=== PATIENT | female | born 1960 | race African-American/Black ===

== ENCOUNTER → 2016-04-22 | Outpatient (CLI) | payer OTHER ==
[2015-10-17 01:18] VITALS: BP 185/119
[~2016-04-22] MED LIST: IBUP-1027 PO; IOHEXOL 180 MG/ML 10 ML VIAL. INT ART ONE; LIDOCAINE 1% Multi-Dose 20 ML VIAL. ID ONE; SULF1TAB24 PO
--- NOTE | 2016-04-22 15:06 | KCIC ---
PROCEDURE CT arthrogram of the left shoulder HISTORY Left shoulder pain, history of fall. Pain since January. COMPARISON None TECHNIQUE Intraarticular contrast was injected prior to the scan. Standard images are obtained. Exposure: One or more of the following individualized dose reduction techniques were utilized for this exam: 1. Automated exposure control. 2. Adjustment of the mA and/or kV according to patient size. 3. Use of iterative reconstruction technique. FINDINGS Broad deep undersurface tear of the supraspinatus tendon, measures 2 cm AP diameter. There is a tiny linear full-thickness component which extends from this undersurface tear to the bursal surface layer, sagittal series 603, image 8 and coronal series 602, image 10. Mild spill of contrast into the subdeltoid bursa. Note that this bursal surface involvement is nearly pinpoint. No evidence of tear involving the infra spinatus tendon. No gross subscapularis tendon rupture. Irregularity identified at the posterior labrum particularly inferiorly, greatest at 8-9 o'clock, compatible with a degenerative tear. Axial series 2, images 18-20. No acute articular cartilage defect. The biceps tendon appears grossly intact. No evidence of HAGL lesion. No bone lesion. No acute fracture. IMPRESSION 1. Moderate size undersurface tear of the supraspinatus tendon. There is a linear pinpoint defect which extends from this defect through the bursal layer resulting in a small full-thickness tear. 2. Posteroinferior labrum tear. Electronically signed by: Darron Alcantar MD (Apr 22, 2016 15:05:25)
--- NOTE | 2016-04-22 15:08 | KCIC ---
PROCEDURE: Left shoulder injection using fluoroscopic guidance, prior to CT HISTORY: Shoulder pain. TECHNIQUE: The procedure was explained to the patient as were potential risks, including among others infection, bleeding or allergic reaction. All questions were answered. Informed written and verbal consent was obtained. The shoulder was prepped and draped in the usual sterile manner. Following administration of local anesthetic, a 22-gauge needle was advanced into the anterior shoulder. Following negative aspiration, 12 cc of a solution of 15cc Omnipaque-180 contrast and 5 cc lidocaine was injected without difficulty. The needle was removed. There was good hemostasis at the injection site. The patient left in stable condition without immediate complication. The patient was given postprocedural instructions, and instructed to contact us or the ER if there are any complications. A single spot image is obtained. FLUOROSCOPY TIME: 23 seconds Electronically signed by: Darron Alcantar MD (Apr 22, 2016 15:07:57)
== END | disposition home or self-care (01) ==
LOC: KCIC 10:04
PROVIDERS: ATTEND Orthopaedic Surgery Sports Medicine
DX: M75.102 Unspecified rotator cuff tear or rupture of left shoulder, not specified as traumatic (principal); S43.402A Unspecified sprain of left shoulder joint, initial encounter; X58.XXXA Exposure to other specified factors, initial encounter; Y93.89 Activity, other specified; Y92.89 Other specified places as the place of occurrence of the external cause; Y99.8 Other external cause status; Z91.81 History of falling
CPT/HCPCS: 73040; 73201

== ENCOUNTER 2016-06-26 09:03 | Day surgery (SDC) | payer OTHER ==
[~2016-06-26 09:03] MED LIST changes: +AMLO5TAB2 PO; +ASPI-482 PO; +BUPIVACAINE MPF 0.5% 30 ML VIAL. ONE; +CEFAZOLIN 1GM IVPB FOR OMNI 50 ML IV PRN; +CHOL10007 PO; +CYCL10TA2 PO; +DESFLURANE > 120 MINUTES IH ONE; +DEXAMETHASONE SOD PHOS 20 MG/5 ML VIAL. ONE; +FENTANYL PF 100 MCG/2 ML VIAL. IV PRN; +FENTANYL PF 100 MCG/2 ML VIAL. ONE; +FLUT16SP NS; +GLIM4TAB2 PO; +IBUP-1060 PO; -IOHEXOL 180 MG/ML 10 ML VIAL. INT ART ONE; +IV RINGERS,LACTATED 1000ML 1,000 ML IV SCH; +LIDOCAINE 1% 1 ML SYRINGE. ID PRN; -LIDOCAINE 1% Multi-Dose 20 ML VIAL. ID ONE; +LIDOCAINE 1% PF 30 ML VIAL. ONE; +LIDOCAINE 2% 100 MG/5 ML SYRINGE. ONE; +LORA10TA3 PO; +LOSA1TAB17 PO; +MAGN400T22 PO; +METF10002 PO; +METO25TA9 PO; +MIDAZOLAM HCL/PF 2 MG/2 ML VIAL. ONE; +OMEG1CAP38 PO; +OMEP20TA PO; +ONDANSETRON PF 4 MG/2 ML VIAL. IV PRN; +ONDANSETRON PF 4 MG/2 ML VIAL. ONE; +PRAV20TA2 PO; +PROCHLORPERAZINE 10 MG/2 ML VIAL. IV PRN; +PROPOFOL 20 ML IV ONE; +SITA100T PO; +TIOT4MIS3 IH
--- NOTE | 2016-06-26 09:45 | RAD ---
PROCEDURE Two-view chest HISTORY Preop rotator cuff repair today COMPARISON None available FINDINGS Two views of the chest are submitted. There is emphysema. There is no lobar consolidation, pleural fluid, pneumothorax. There is thoracic spinal stimulator lead. IMPRESSION 1. There is emphysema. Electronically signed by: Tj Ross MD (Jun 26, 2016 09:44:15)
[2016-06-26] MEDS ORDERED: ROPIVacaine 0.5% PF 30 ML VIAL. ONE (09:58)
--- NOTE | 2016-06-26 10:08 | DISCH ---
DISCHARGE INSTRUCTIONS Condition on Discharge Condition on Discharge: Stable Activity After Discharge Activity Instructions for Disc: Other, see below Other activity instructions: arm to remain in sling Bathing Instructions: Shower-keep dressing dry Weight Bearing Status after Di: Non weight bearing Diet after Discharge Diet after Discharge: Regular Wound Incision Care Wound/Incision Care: Ice to area for comfort, Keep wound/cast CDI, Change dressing Contacting the DRTeo after DC Call your doctor for: Concerns you may have Follow-Up Follow up with: Rosalio/Farzad in 2 wks LEEROY NOYOLA II, MD Jun 26, 2016 10:07
--- NOTE | 2016-06-26 10:09 | PDOC ---
BRIEF OPERATIVE NOTE Date: Jun 26, 2016 Pre-Op Diagnosis L RTC tear Post-Op Diagnosis same Procedure Performed Mini-open L RTC tear Surgeon Farzad Zeng Anesthesia Type: General, Local, Regional Blood Loss 25mL Complications none LEEROY NOYOLA II, MD Jun 26, 2016 10:09
[2016-06-26] MEDS ORDERED: ROCURONIUM 50 MG/5 ML VIAL. ONE (10:37)
[2016-06-26] MEDS ORDERED: MIDAZOLAM HCL/PF 2 MG/2 ML VIAL. ONE (10:49)
[2016-06-26] MEDS ORDERED: FENTANYL PF 100 MCG/2 ML VIAL. ONE (10:49)
[2016-06-26] MEDS ORDERED: PHENYLEPHRINE 10 MG/ML VIAL. ONE (10:57)
[2016-06-26] MEDS ORDERED: DEXAMETHASONE SOD PHOS 20 MG/5 ML VIAL. ONE (11:10)
[2016-06-26] MEDS ORDERED: ONDANSETRON PF 4 MG/2 ML VIAL. ONE (11:11)
[2016-06-26] MEDS ORDERED: LIDOCAINE 2% 100 MG/5 ML SYRINGE. ONE (12:04)
[2016-06-26] MEDS ORDERED: GLYCOPYRROLATE 1 MG/5 ML VIAL. ONE (12:07)
[2016-06-26] MEDS ORDERED: NEOSTIGMINE METHYLSULFATE 5 MG/5 ML SYRINGE. ONE (12:07)
[2016-06-26] MEDS ORDERED: OXYC-323 PO (12:53)
[2016-06-26] MEDS ORDERED: DOCU-27 PO (12:54)
[2016-06-26] MEDS ORDERED: ONDA4TAB10 PO (12:54)
[2016-06-26 13:20] VITALS: BP 123/73
--- NOTE | 2016-06-26 15:50 | EKG ---
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
--- NOTE | 2016-06-26 16:47 | OP ---
DATE OF SURGERY: 06/26/2016 SURGEON: Ariel Noyola M.D. ROOM CLEANER: Shanelle Zeng. ANESTHESIA: General plus regional. PREOPERATIVE DIAGNOSIS: Near full thickness left shoulder rotator cuff tear. POSTOPERATIVE DIAGNOSIS: Near full thickness left shoulder rotator cuff tear. PROCEDURE PERFORMED: Completion of rotator cuff tear and mini open left rotator cuff repair. ESTIMATED BLOOD LOSS: 25 mL COMPLICATIONS: None. REASON FOR PROCEDURE DONE: The patient is a very pleasant 55-year-old female who failed conservative therapies including injections and physical therapy as well as anti-inflammatories and had persistent shoulder pain and dysfunction. Because of this, we obtained an MRI. Clinical and radiographic evidence were consistent with the above preoperative diagnosis and after discussion of the risks, benefits, alternatives, we elected to proceed with surgery. DESCRIPTION OF PROCEDURE: The patient was greeted in the preoperative area by myself where correct extremity was marked and verified. She then had a regional nerve block placed by the anesthesiology team and then was taken back to the operative suite and had her antibiotics started en route. Once in the OR, she was transferred gently supine to the OR table after successful induction of general anesthesia. We then set her up in a beach chair position and maintained her C-spine in neutral position and secured to the bed with a large pad under hips and legs. We then proceeded to prep and drape left upper extremity and shoulder girdle in our usual sterile fashion including Ioban at the periphery. I then palpated, marked surface anatomy and made about a 6 cm incision of the anterior portion of her lateral acromion. I dissected skin down to the level of fascia and cauterized bleeders with electrocautery. I then identified the deltoid raphe using a scalpel blade to incise this and then scalpel to carry this out distally. I then placed a Gelpi retractor deep to the deltoid after bluntly freeing up some adhesions. I then excised through bursa with Hiren and the heavy pickup. After this, I identified a rotator cuff then used a [place] and digital palpation to identify where the fibers were really thin and incised in the central portion of this at the rotator cuff footprint. I then placed a tag stitch and was able to lift upper rotator cuff and I continued incising a rotator cuff until I visualized that it had a normal attachment. I then used a rongeur to debride the edges of the rotator cuff and the footprint. I then created a small trough in the rotator cuff footprint with the rongeur. I then shuttled a total of 5 sutures through this tear which was approximately 4 cm long. I then passed this through with a single suture for the first one and posterior most one. Otherwise, I passed the bottom of the preceding suture and the top of the suture behind it through the tunnel with the free needle. After this, I then tied the suture limbs down to each other over bone tunnels which gave a good solid repair and no motion on gentle rotation of the arm. We then irrigated out the operative field and I proceeded to close the deltoid fascia with simple interrupted #1 Vicryl. Inverted interrupted 2-0 was used for subcutaneous tissue, running 4-0 Monocryl was used for skin. Prior to wound closure, all counts were reported correct x 2. No complications. It should be noted that tendon was not retracted and had great bounce and I did not need to do any releases. After skin was closed, left upper extremity and shoulder was cleansed and dried and a sterile dressing was applied followed by an abduction pillow sling. She was awaked from anesthesia, tolerated surgery well. No complications. Postop plan is to discharge her home. She will start physical therapy early next week and we will see her back in my clinic in 2 weeks, sooner should problems arise. ARIEL NOYOLA MD DR: ORLANDO/bibi JOB#: [id number] / [id number] CAMILA
== END 2016-06-26 13:40 | disposition home or self-care (01) ==
LOC: SURG 09:03
PROVIDERS: ATTEND Orthopaedic Surgery Sports Medicine
DX: M75.102 Unspecified rotator cuff tear or rupture of left shoulder, not specified as traumatic (principal); E78.00 Pure hypercholesterolemia, unspecified; I10 Essential (primary) hypertension; J44.9 Chronic obstructive pulmonary disease, unspecified; E66.9 Obesity, unspecified; E11.9 Type 2 diabetes mellitus without complications; Z87.39 Personal history of other diseases of the musculoskeletal system and connective tissue; Z90.710 Acquired absence of both cervix and uterus; Z86.73 Personal history of transient ischemic attack (TIA), and cerebral infarction without residual deficits
CPT/HCPCS: 23410; 71020; 82947; 93005; J0690; J1100; J2250; J2405; J2704; J2710; J2795; J3010; J3490

== ENCOUNTER 2016-07-01 11:22 | Emergency (ER) | payer OTHER ==
[~2016-07-01] VITALS: Ht 165.1 cm; Wt 73.9 kg
[~2016-07-01 11:22] MED LIST changes: -BUPIVACAINE MPF 0.5% 30 ML VIAL. ONE; -CEFAZOLIN 1GM IVPB FOR OMNI 50 ML IV PRN; -DESFLURANE > 120 MINUTES IH ONE; -DEXAMETHASONE SOD PHOS 20 MG/5 ML VIAL. ONE; +DOCU-27 PO; -FENTANYL PF 100 MCG/2 ML VIAL. IV PRN; -FENTANYL PF 100 MCG/2 ML VIAL. ONE; -IV RINGERS,LACTATED 1000ML 1,000 ML IV SCH; -LIDOCAINE 1% 1 ML SYRINGE. ID PRN; -LIDOCAINE 1% PF 30 ML VIAL. ONE; -LIDOCAINE 2% 100 MG/5 ML SYRINGE. ONE; -MIDAZOLAM HCL/PF 2 MG/2 ML VIAL. ONE; +ONDA4TAB10 PO; -ONDANSETRON PF 4 MG/2 ML VIAL. IV PRN; -ONDANSETRON PF 4 MG/2 ML VIAL. ONE; +OXYC-323 PO; -PROCHLORPERAZINE 10 MG/2 ML VIAL. IV PRN; -PROPOFOL 20 ML IV ONE
[2016-07-01 11:43] VITALS: BP 132/91
[2016-07-01] MEDS ORDERED: IBUP-1007 PO (13:00)
[2016-07-01] MEDS ORDERED: PENI500T PO (13:00)
--- NOTE | 2016-07-01 13:00 | PHYS DOC ---
Past Medical History Past Medical History: Diabetes-Type II, Diverticulitis, High Cholesterol, Hypertension Additional Past Medical Histor: chronic back pain, sarcoidosis, pilonidal cyst Past Surgical History: Hysterectomy Additional Past Surgical Histo: back surgery- spinal cord stimulator, lumpectomy, cyst Alcohol Use: Occasionally Drug Use: None Adult General Chief Complaint Chief Complaint: DENTAL PROBLEM HPI HPI Patient is a 55 year old female who presents with pain. Patient reports right- sided tooth pain with jaw swelling and difficulty opening her mouth. Denies fevers or chills, vomiting. No drainage. Does not currently have a dentist. She recently had shoulder surgery by Dr. Panda & has been taking percocet at home. Review of Systems Review of Systems Constitutional: Denies fever or chills HENT: Denies nasal congestion or sore throat , reports dental pain and facial swelling Respiratory: Denies cough or shortness of breath Cardiovascular: Denies chest pain GI: Denies abdominal pain, nausea, vomiting Musculoskeletal: Denies back pain or joint pain Integument: Denies rash Neurologic: Denies headache Current Medications Current Medications Current Medications Medications (Trade) Dose Ordered Sig/Misty Start Time Stop Time Status Last Admin Dose Admin Fentanyl Citrate (Fentanyl 2ml Vial) 50 mcg 1X ONCE 07/01/16 13:45 07/01/16 13:45 DC 07/01/16 13:22 50 MCG Allergies Allergies Allergies Coded Allergies Type Severity Reaction Last Updated Verified hydrocodone Adverse Reaction Intermediate headache 07/01/16 Yes morphine Adverse Reaction Intermediate headache 07/01/16 Yes propoxyphene Adverse Reaction Intermediate HEADACHE 07/01/16 Yes Physical Exam Physical Exam Constitutional: Well developed, well nourished, no acute distress, non-toxic appearance. HENT: Normocephalic, atraumatic, bilateral external ears normal, oropharynx moist, nose normal. Right-sided facial swelling with gingival erythema surrounding tooth #6, no abscess, mild trismus, airway is patent. Eyes: conjunctiva normal, no discharge. Cardiovascular: no edema. Lungs & Thorax: no respiratory distress. Abdomen: nondistended. Skin: Warm, dry, Extremities: No deformity. Wearing a sling to left upper extremity Neurologic: Alert and oriented X 3 Current Patient Data Vital Signs Vital Signs Date Time Temp Pulse Resp B/P Pulse Ox O2 Delivery O2 Flow Rate FiO2 07/01/16 11:43 98.8 116 20 97 Room Air 98.8 EKG EKG [] Radiology/Procedures Radiology/Procedures [] Course & Med Decision Making Course & Med Decision Making Pertinent Labs and Imaging studies reviewed. (See chart for details) Patient presents with dental pain and infection. Gave fentanyl injection here as she has arty been taking Percocet at home. Encouraged her to continue Percocet, add ibuprofen. Given prescription for penicillin VK. Recommend follow- up as soon as possible with a dentist for definitive management. Return for difficulty breathing or swallowing. Patient discharged home in stable condition. [] Dragon Disclaimer Dragon Disclaimer This electronic medical record was generated, in whole or in part, using a voice recognition dictation system. Departure Departure Impression: Primary Impression: Dental infection Disposition: HOME, SELF-CARE Condition: STABLE Referrals: LEXI GUY MD (PCP) Patient Instructions: Dental Pain, [id number] Additional Instructions: You were seen in the emergency department today for dental infection. Please take the prescribed antibiotic. Continue taking the medication as prescribed by your orthopedic doctor. If needed you can also take ibuprofen. Also apply ice packs your face. Try to make an appointment as soon as possible to see a dentist as he might need to have her tooth extracted. Come back for difficulty breathing or swallowing, or any otherwise worsening condition. Scripts Ibuprofen 600 Mg [id number] Mg PO PRN Q6HRS PRN INFLAMMATION #15 TAB Prov:LIA DOMINGUEZ MD 07/01/16 Penicillin V Potassium 500 Mg Tablet1 Tab PO QID #40 TAB Prov:LIA DOMINGUEZ MD 07/01/16 LIA DOMINGUEZ MD Jul 01, 2016 13:00
[2016-07-01] MEDS ORDERED: FENTANYL PF 100 MCG/2 ML VIAL. IM ONE (13:45)
== END 2016-07-01 13:44 | disposition home or self-care (01) ==
LOC: ER 11:22
DX: K04.7 Periapical abscess without sinus (principal); E11.9 Type 2 diabetes mellitus without complications; E78.00 Pure hypercholesterolemia, unspecified; I10 Essential (primary) hypertension; G89.29 Other chronic pain; Z88.8 Allergy status to other drugs, medicaments and biological substances; Z88.5 Allergy status to narcotic agent
CPT/HCPCS: 96372; 99283; J3010

== ENCOUNTER → 2016-10-08 | Outpatient (CLI) | payer OTHER ==
[~2016-10-08] MED LIST changes: +CHOL100014 PO; -CHOL10007 PO; +CONTRAST GIVEN MC PRN; +DOCU-109 PO; -DOCU-27 PO; +IBUP-1007 PO; +IOHEXOL 180 MG/ML 10 ML VIAL. INT ART ONE; +LIDOCAINE 1% Multi-Dose 20 ML VIAL. ID ONE; +METF-620 PO; -METF10002 PO; -OMEP20TA PO; +OMEP20TA8 PO; +PENI500T PO
--- NOTE | 2016-10-08 14:07 | KCIC ---
CT arthrogram of the left shoulder Indication: Chronic left shoulder pain. . Previous surgery. Comparison: April 22, 2016. Contrast: Intra-articular contrast injected prior to the procedure and is reported separately. Exposure: One or more of the following individualized dose reduction techniques were utilized for this examination: 1. Automated exposure control 2. Adjustment of the mA and/or kV according to patient size 3. Use of iterative reconstruction technique. Findings: Mild irregularity of the undersurface of the supraspinatus and infraspinatus tendon. There is minimal contrast accumulation within the articular supraspinatus tendon tissue, could be related to prior surgical repair. This is much less than was seen on the prior study. No evidence of a recurrent rotator cuff rupture through the supraspinatus or infraspinatus tendon. Trace contrast within the anterior subdeltoid bursa, may just be due to the injection or due to prior surgical intervention. Posterosuperior labrum appears small and irregular, slightly more so than on the prior study, may indicate prior surgical intervention. No evidence of acute fracture or aggressive bone destruction. No dislocation. No acute articular cartilage defect identified. No evidence of biceps tendon dislocation. Partially visualized lung demonstrates emphysematous disease. In addition, there has been development of a 9 mm noncalcified pulmonary nodule in the left lower lobe. Additional left upper lobe nodule with mildly spiculated margins has developed in the more anterior left upper lobe measuring 9 mm. Several additional smaller areas of nodularity are also now apparent. IMPRESSION: 1. Development of multiple noncalcified pulmonary nodules in the partially visualized left lung. Metastatic tumor deposits are the leading concern. Recommend CT chest and oncology evaluation. Findings discussed by telephone with Dr. Panda at 1400 hours on 10/08/2016. 2. No evidence of recurrent significant rotator cuff tear. Electronically signed by: Darron Alcantar MD (10/08/2016 2:04 PM) [facility]
--- NOTE | 2016-10-08 14:43 | KCIC ---
Left shoulder contrast injection using fluoroscopic guidance prior to CT History: Chronic left shoulder pain. Technique: The procedure and associated risks, including infection, bleeding or allergic reaction, were explained to the patient. Informed written consent was obtained. Time-out procedure was performed. The anterior shoulder was prepped and draped in usual sterile manner. Local anesthetic was obtained with lidocaine. A 22 gauge needle was advanced without difficulty into the glenohumeral joint. After negative aspiration, a mixture of 15 cc Omnipaque 180 contrast and 5 cc 1 percent lidocaine mixture was injected without difficulty, to a total volume of 12 cc. Needle was removed. Patient tolerated the procedure well without immediate complication and left in stable condition. Patient was given instructions to contact us or go to the emergency room if there are any unexpected complications, which were explained. Fluoroscopy time: ?29 seconds Electronically signed by: Darron Alcantar MD (10/08/2016 2:40 PM) [facility]-[email or web address]
== END | disposition home or self-care (01) ==
LOC: KCIC 12:15
PROVIDERS: ATTEND Orthopaedic Surgery Sports Medicine
DX: Z98.890 Other specified postprocedural states (principal); M25.512 Pain in left shoulder; I10 Essential (primary) hypertension; F17.200 Nicotine dependence, unspecified, uncomplicated; E11.9 Type 2 diabetes mellitus without complications; G89.29 Other chronic pain
CPT/HCPCS: 73040; 73201

== ENCOUNTER → 2016-10-31 | Outpatient (CLI) | payer OTHER ==
[~2016-10-31] MED LIST changes: -CONTRAST GIVEN MC PRN; -IOHEXOL 180 MG/ML 10 ML VIAL. INT ART ONE; -LIDOCAINE 1% Multi-Dose 20 ML VIAL. ID ONE
--- NOTE | 2016-10-31 13:45 | KCIC ---
CT of the left shoulder HISTORY: Shoulder tightness. Rotator cuff repair June 2016. Exposure: One or more of the following individualized dose reduction techniques were utilized for this examination: 1. Automated exposure control 2. Adjustment of the mA and/or kV according to patient size 3. Use of iterative reconstruction technique. TECHNIQUE: Standard noncontrast imaging with multiplanar reconstructions. COMPARISON: CT arthrogram October 08, 2016. FINDINGS: No acute fracture or aggressive bone destruction. Mild patchy subchondral lucency at the superior humeral head may be due to osteoporosis. The glenohumeral joint is intact with minimal degenerative spurring. Acromioclavicular joint is intact. No obvious soft tissue abnormality is identified. Pulmonary nodules are identified in the partially visualized left lung, and will be fully evaluated with a dedicated chest CT to be performed on the same day. IMPRESSION: 1. No acute fracture or other acute bone abnormality. 2. Pulmonary nodules in the partially visualized left lung. Refer to separate CT chest report. Electronically signed by: Darron Alcantar MD (10/31/2016 1:41 PM) [facility]
== END | disposition home or self-care (01) ==
LOC: KCIC CT 12:34
PROVIDERS: ATTEND Orthopaedic Surgery Sports Medicine
DX: R91.8 Other nonspecific abnormal finding of lung field (principal); Z96.612 Presence of left artificial shoulder joint
CPT/HCPCS: 73200

== ENCOUNTER → 2016-10-31 | Outpatient (CLI) | payer OTHER ==
[~2016-10-31] MED LIST changes: +CONTRAST GIVEN MC PRN; +IOHEXOL 300 MG/ML 50 ML VIAL. IV ONE
--- NOTE | 2016-10-31 13:49 | KCIC ---
CT CHEST Indication: Lung nodules. History of sarcoidosis Technique: Multiple contiguous axial images were obtained through the chest after administration of iodinated contrast. Coronal and sagittal reformations were created. Findings: There is mildly prominent axillary adenopathy. These lymph nodes demonstrate normal fatty hilar architecture. There is a prominent right hilar lymph node which measures 1.3 by 0.8 cm. Heart size is normal. No pericardial effusion. Thoracic aorta is normal in caliber. There is centrilobular emphysema. There are several bilateral pulmonary nodules. The largest on the right is seen in the superior segment right lower lobe measuring 8 mm. The largest on the left is seen in the upper lobe which measures 10 mm. No pleural effusion or consolidation. No pneumothorax. Limited subdiaphragmatic evaluation shows no acute abnormality. There appears to be a spinal stimulator in place. No destructive osseous lesion. IMPRESSION: Centrilobular emphysema with bilateral pulmonary nodules. The largest is 10 mm in the left upper lobe. Short-term follow-up is recommended. Electronically signed by: Enrique Cotto MD (10/31/2016 1:45 PM) [place] [id number]
--- NOTE | 2016-10-31 17:46 | RAD ---
DATE: 10/31/2016 EXAM: MAMMO DEL SCREENING BILATERAL Bilateral digital screening mammography to include digital breast tomosynthesis (3D mammography) HISTORY: Screening study. COMPARISON: 05/01/2015 This study was interpreted with the benefit of Computerized Aided Detection (CAD). FINDINGS: Digital MLO and CC mammograms of both breasts were obtained. Additionally digital breast tomosynthesis (3D mammography) images of both breasts in the MLO and CC projections were performed. Comparison study is dated 05/01/2015. The breast parenchyma is heterogeneously dense which can obscure a lesion on mammography (breast density code C). No spiculated mass is seen. No malignant appearing calcification or area of architectural distortion is noted. Benign-appearing calcifications are seen within both breasts, unchanged. Digital breast tomosynthesis images demonstrate no spiculated mass or malignant appearing calcification. Since the previous examination there has been no significant interval change. IMPRESSION: . Category 1, negative. There is no mammographic evidence of malignancy. Routine yearly screening mammography is recommended for follow-up BI-RADS CATEGORY: 1 NEGATIVE RECOMMENDED FOLLOW-UP: 12M 12 MONTH FOLLOW-UP PQRS compliance statement: Patient information was entered into a reminder system with a target due date 10/31/2017 for the next mammogram. Mammography is a sensitive method for finding small breast cancers, but it does not detect them all and is not a substitute for careful clinical examination. A negative mammogram does not negate a clinically suspicious finding and should not result in delay in biopsying a clinically suspicious abnormality. "Our facility is accredited by the [employer] Mammography Program."
== END | disposition home or self-care (01) ==
LOC: KCIC MAMMO 11:54
PROVIDERS: ATTEND Internal Medicine
DX: Z12.31 Encounter for screening mammogram for malignant neoplasm of breast (principal); J43.2 Centrilobular emphysema; D86.9 Sarcoidosis, unspecified
CPT/HCPCS: 71270; 77063; 82565; G0202; Q9967; 77067

== ENCOUNTER 2016-11-04 06:29 | Day surgery (SDC) | payer OTHER ==
[~2016-11-04 06:29] MED LIST changes: -CONTRAST GIVEN MC PRN; -IOHEXOL 300 MG/ML 50 ML VIAL. IV ONE
[2016-11-04] MEDS ORDERED: ONDANSETRON PF 4 MG/2 ML VIAL. IV PRN (07:00)
[2016-11-04] MEDS ORDERED: PROCHLORPERAZINE 10 MG/2 ML VIAL. IV PRN (07:00)
[2016-11-04] MEDS ORDERED: LIDOCAINE 1% 1 ML SYRINGE. ID PRN (07:00)
[2016-11-04] MEDS ORDERED: IV RINGERS,LACTATED 1000ML 1,000 ML IV SCH (07:00)
[2016-11-04] MEDS ORDERED: fentaNYL PF VIAL 100 MCG/2 ML VIAL IV PRN ×2 (07:00)
--- NOTE | 2016-11-04 07:35 | DISCH ---
DISCHARGE INSTRUCTIONS Condition on Discharge Condition on Discharge: Stable Activity After Discharge Activity Instructions for Disc: Other, see below Other activity instructions: sling prn; resume PT within 1-2 days Bathing Instructions: Shower-keep dressing dry Lifting Instructions after Dis: No heavy lifting, No pulling or pushing, Do not lift >10 pounds Weight Bearing Status after Di: As tolerated Diet after Discharge Diet after Discharge: Regular Contacting the DR. after DC Call your doctor for: Concerns you may have Follow-Up Follow up with: Farzad in 2wks LEEROY NOYOLA II, MD Nov 04, 2016 07:35
[2016-11-04] MEDS ORDERED: PROPOFOL 20 ML IV ONE (07:53)
[2016-11-04] MEDS ORDERED: MIDAZOLAM HCL/PF 2 MG/2 ML VIAL. ONE (07:54)
[2016-11-04] MEDS ORDERED: ROPIVacaine 0.5% PF 30 ML VIAL. ONE (08:04)
[2016-11-04] MEDS ORDERED: DEXAMETHASONE SOD PHOS 20 MG/5 ML VIAL. ONE (08:04)
--- NOTE | 2016-11-04 08:10 | PDOC4 ---
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 She had been participating PT, but her ROM had plateaued. We discussed the risks, benefits and alternatives to the above procedure and she wished to proceed. Description of procedure: Patient was greeted in the preoperative area by myself for the correct extremity was marked and verified. She was taken back to the operative suite and had placement of a regional nerve block by the anesthesiology team. After this, the propofol was administered and I allowed this to begin working. I then conducted my examination under anesthesia with the above-noted findings. I then began by closed manipulation with slow and steady pressure and external rotation, forward elevation, and abduction. I used a short lever arm as possible for these maneuvers. I went through these maneuvers several times. I was able to accomplish a much greater improvement in her range of motion and felt a palpable and audible release of fibrotic tissue. Her final range of motion was forward elevation 150, abduction of 90, external rotation of 45. She tolerated this well. No complications. At the conclusion of this procedure, she was awakened from anesthesia and taken to the PACU in a stable and extubated condition. Postoperative plan is sling use as needed. I stressed the importance of working hard to regain her range of motion and working with physical therapy as often as she is able to. We will see her back in 2 weeks, sooner should problems arise. ARIEL NOYOLA II, MD Nov 04, 2016 08:10
[2016-11-04] MEDS ORDERED: OXYC-328 PO (09:02)
[2016-11-04 09:47] VITALS: BP 152/83
== END 2016-11-04 09:47 | disposition home or self-care (01) ==
LOC: SURG 06:29
PROVIDERS: ATTEND Orthopaedic Surgery Sports Medicine
DX: M24.612 Ankylosis, left shoulder (principal); E78.00 Pure hypercholesterolemia, unspecified; I10 Essential (primary) hypertension; J44.9 Chronic obstructive pulmonary disease, unspecified; E11.9 Type 2 diabetes mellitus without complications; Z87.01 Personal history of pneumonia (recurrent); Z86.39 Personal history of other endocrine, nutritional and metabolic disease; Z86.73 Personal history of transient ischemic attack (TIA), and cerebral infarction without residual deficits; Z90.710 Acquired absence of both cervix and uterus; Z72.0 Tobacco use; Z87.440 Personal history of urinary (tract) infections; Z88.6 Allergy status to analgesic agent; Z88.8 Allergy status to other drugs, medicaments and biological substances
CPT/HCPCS: 23700; 82962; J1100; J2250; J2704; J2795

== ENCOUNTER → 2017-03-06 | Outpatient (CLI) | payer OTHER ==
[~2017-03-06] MED LIST changes: -LOSA1TAB17 PO; +LOSA1TAB22 PO; +METO-239 PO; -METO25TA9 PO; +OXYC-328 PO
--- NOTE | 2017-03-06 14:19 | RAD ---
Indication: Pulmonary nodule. Sarcoidosis. Technique: PET/CT utilized 16.04 millicuries F-18 FDG IV. Patient's blood glucose level at the time of exam was [address] was obtained for attenuation correction and correlative purposes, is not intended for interpretation separate from the PET imaging. Comparison is made to a CT chest from October 31, [address] abdomen and pelvis from July 19, 2015. One or more of the following individualized dose reduction techniques were utilized for this examination: 1. Automated exposure control 2. Adjustment of the mA and/or kV according to patient size 3. Use of iterative reconstruction technique Findings: Head and neck: There is no radiotracer accumulation in a pattern to suggest metastatic disease. Chest: Many of the pulmonary nodules noted on the October study have decreased in size. There is no associated PET avidity beyond background. There is no PET avid hilar or mediastinal adenopathy. Abdomen/pelvis: There is no radiotracer accumulation in a pattern to suggest metastatic disease. Nonspecific bowel uptake is noted. Musculoskeletal: There is no radiotracer accumulation in a pattern to suggest metastatic disease. Non-PET findings: Several of the pulmonary nodules have decreased in size from prior study, for example the left upper lobe nodule that measured 10 mm on prior is now 6 mm in size. Other nodules are stable, for example a left lower lobe nodule measures 7 mm. The largest nodule on the right was right upper lobe and measured up to 8 mm on prior, decreased to 6 mm on today's exam. No enlarging nodule is identified. There are diverticula in the colon. There is minimal atheromatous disease in the aorta. There are degenerative changes in the spine. Impression: Pulmonary nodules noted on prior study have decreased in size and are not PET avid. There is no radiotracer accumulation in a pattern to suggest neoplasm.
== END | disposition home or self-care (01) ==
LOC: PETSC 11:09
PROVIDERS: ATTEND Internal Medicine
DX: D86.9 Sarcoidosis, unspecified (principal); K57.30 Diverticulosis of large intestine without perforation or abscess without bleeding; I70.0 Atherosclerosis of aorta; M47.899 Other spondylosis, site unspecified
CPT/HCPCS: 78815; A9552

== ENCOUNTER → 2017-12-12 | Outpatient (CLI) | payer OTHER ==
[~2017-12-12] MED LIST changes: -AMLO5TAB2 PO; +AMLO5TAB7 PO; -METF-620 PO; +METF10007 PO
--- NOTE | 2017-12-12 15:08 | KCIC ---
Bilateral digital screening mammograms with 3-D tomosynthesis: Reason for examination: Routine screening. Comparison is made to previous studies dated 10/31/2016 and 04/08/2014. Bilateral mammograms in CC and oblique projections were obtained with 2-D imaging and 3-D tomosynthesis imaging on a Siemens Inspiration unit and reviewed on the workstation. Interpretation was made with the benefit of CAD. The skin and nipples show no abnormalities. No abnormal axillary lymph nodes are seen. The breast parenchyma is extremely dense. (Breast density: Category D.) There are no dominant masses, suspicious calcifications or architectural distortion. Punctate benign-appearing calcifications are again seen. Impression: No evidence of malignancy. Recommend routine screening. Your patient's mammogram demonstrates that she has dense breast tissue (breast density category C or D), which could hide abnormalities, and if she has other risk factors for breast cancer that have been identified, she might benefit from supplemental screening tests that may be suggested by you as her ordering physician. Dense breast tissue, in and of itself, is a relatively common condition. Therefore, this information is not provided to cause undue concern, but rather to raise your awareness and to promote discussion with your patient regarding the presence of other risk factors, in addition to dense breast tissue. Your patient's mammography results will be sent to her. BI-RAD Category 2: Benign. "Our facility is accredited by the [employer] Mammography Program." This patient's information has been entered into a reminder system for the patient to be notified with the results of her examination and a target date for the next mammogram. Electronically signed by: Laura Murray MD (12/12/2017 3:05 PM) [id number]
== END | disposition home or self-care (01) ==
LOC: KCIC MAMMO 11:17
PROVIDERS: ATTEND Family Medicine
DX: Z12.31 Encounter for screening mammogram for malignant neoplasm of breast (principal); I10 Essential (primary) hypertension; E11.9 Type 2 diabetes mellitus without complications; E78.00 Pure hypercholesterolemia, unspecified; J43.2 Centrilobular emphysema; E78.5 Hyperlipidemia, unspecified; Z86.73 Personal history of transient ischemic attack (TIA), and cerebral infarction without residual deficits; Z87.440 Personal history of urinary (tract) infections; Z87.19 Personal history of other diseases of the digestive system; Z86.39 Personal history of other endocrine, nutritional and metabolic disease; Z87.39 Personal history of other diseases of the musculoskeletal system and connective tissue; Z90.710 Acquired absence of both cervix and uterus; Z86.2 Personal history of diseases of the blood and blood-forming organs and certain disorders involving the immune mechanism; Z84.2 Family history of other diseases of the genitourinary system
CPT/HCPCS: 77063; 77067

== ENCOUNTER 2018-04-26 05:10 | Observation (INO) | payer OTHER ==
[~2018-04-26] VITALS: Ht 162.6 cm; Wt 72.1 kg
[~2018-04-26 05:10] MED LIST changes: -OXYC-323 PO; -OXYC-328 PO; +OXYC1TAB15 PO; +OXYC1TAB22 PO
--- NOTE | 2018-04-26 05:39 | PHYS DOC ---
Past Medical History Past Medical History: Diabetes-Type II, Diverticulitis, High Cholesterol, Hypertension Additional Past Medical Histor: chronic back pain, sarcoidosis, pilonidal cyst (MAYKEL MANN DO) Past Surgical History: Hysterectomy Additional Past Surgical Histo: back surgery- spinal cord stimulator, lumpectomy, cyst (MAYKEL MANN DO) Alcohol Use: Occasionally Drug Use: None (MAYKEL MANN DO) Adult General Chief Complaint Chief Complaint: CHEST PAIN HPI HPI Patient is a 57 year old female who presents with chest pain that began approximately 0 3:30 as she woke up from sleep. Worse with exertion. No radiation. Some shortness of breath. This was severe while was going on and lasted approximately an hour. There was no radiation of the discomfort. No diaphoresis. Patient has a history of diabetes, high cholesterol, and hypertension. Patient was brought in by EMS who gave the patient an aspirin. Patient chest pain had resolved by the time EMS arrived. She refused nitroglycerin.[] (MAYKEL MANN DO) Review of Systems Review of Systems Constitutional: Denies fever or chills [] Eyes: Denies change in visual acuity, redness, or eye pain [] HENT: Denies nasal congestion or sore throat [] Respiratory: Denies cough or shortness of breath [] Cardiovascular: No additional information not addressed in HPI [] GI: Denies abdominal pain, nausea, vomiting, bloody stools or diarrhea [] : Denies dysuria or hematuria [] Musculoskeletal: Denies back pain or joint pain [] Integument: Denies rash or skin lesions [] Neurologic: Denies headache, focal weakness or sensory changes [] Endocrine: Denies polyuria or polydipsia [] All other systems were reviewed and found to be within normal limits, except as documented in this note. (MAYKEL MANN DO) Current Medications Current Medications Current Medications Medications (Trade) Dose Ordered Sig/Misty Start Time Stop Time Status Last Admin Dose Admin Magnesium Sulfate 50 ml @ 25 mls/hr 1X ONCE 04/26/18 07:00 2 08:59 Potassium Chloride (Klor-Con) 40 meq 1X ONCE 04/26/18 07:00 04/26/18 07:01 (DARRON DANGELO DO) Allergies Allergies Allergies Coded Allergies Type Severity Reaction Last Updated Verified hydrocodone Adverse Reaction Intermediate headache 11/04/16 Yes morphine Adverse Reaction Intermediate headache 11/04/16 Yes propoxyphene Adverse Reaction Intermediate HEADACHE 11/04/16 Yes (DARRON DANGELO DO) Physical Exam Physical Exam Constitutional: Well developed, well nourished, no acute distress, non-toxic appearance. [] HENT: Normocephalic, atraumatic, bilateral external ears normal, oropharynx moist, no oral exudates, nose normal. [] Eyes: PERRLA, EOMI, conjunctiva normal, no discharge. [] Neck: Normal range of motion, no tenderness, supple, no stridor. [] Cardiovascular:Heart rate regular rhythm, no murmur [] Lungs & Thorax: Bilateral breath sounds clear to auscultation [] Abdomen: Bowel sounds normal, soft, no tenderness, no masses, no pulsatile masses. [] Skin: Warm, dry, no erythema, no rash. [] Back: No tenderness, no CVA tenderness. [] Extremities: No tenderness, no cyanosis, no clubbing, ROM intact, no edema. [] Neurologic: Alert and oriented X 3, normal motor function, normal sensory function, no focal deficits noted. [] Psychologic: Affect normal, judgement normal, mood normal. [] (MAYKEL MANN DO) Physical Exam Constitutional: Well developed, well nourished, no acute distress, non-toxic appearance. [] HENT: Normocephalic, atraumatic Cardiovascular: Heart rate regular rhythm, no murmur [] Lungs & Thorax: Bilateral breath sounds clear to auscultation [] Skin: Warm, dry, no erythema, no rash. [] Extremities: No tenderness, ROM intact, no edema. [] Neurologic: Alert and oriented X 3, no focal deficits noted. [] Psychologic: Affect normal, judgement normal, mood normal. [] (DARRON DANGELO DO) Current Patient Data Vital Signs Vital Signs Date Time Temp Pulse Resp B/P (MAP) Pulse Ox O2 Delivery O2 Flow Rate FiO2 04/26/18 05:17 98.0 77 20 108/73 (85) 96 Room Air 98.0 (DARRON DANGELO DO) Lab Values Laboratory Tests Test 04/26/18 05:25 04/26/18 05:39 White Blood Count 8.7 x10^3/uL (4.0-11.0) Red Blood Count 3.71 x10^6/uL (3.50-5.40) Hemoglobin 11.5 g/dL (12.0-15.5) L Hematocrit 34.0 % (36.0-47.0) L Mean Corpuscular Volume 92 fL (79-100) Mean Corpuscular Hemoglobin 31 pg (25-35) Mean Corpuscular Hemoglobin Concent 34 g/dL (31-37) Red Cell Distribution Width 13.9 % (11.5-14.5) Platelet Count 397 x10^3/uL (140-400) Neutrophils (%) (Auto) 50 % (31-73) Lymphocytes (%) (Auto) 42 % (24-48) Monocytes (%) (Auto) 5 % (0-9) Eosinophils (%) (Auto) 2 % (0-3) Basophils (%) (Auto) 1 % (0-3) Neutrophils # (Auto) 4.4 x10^3uL (1.8-7.7) Lymphocytes # (Auto) 3.7 x10^3/uL (1.0-4.8) Monocytes # (Auto) 0.4 x10^3/uL (0.0-1.1) Eosinophils # (Auto) 0.2 x10^3/uL (0.0-0.7) Basophils # (Auto) 0.0 x10^3/uL (0.0-0.2) Prothrombin Time 13.6 SEC (11.7-14.0) Prothrombin Time INR 1.1 (0.8-1.1) Sodium Level 143 mmol/L (136-145) Potassium Level 3.3 mmol/L (3.5-5.1) L Chloride Level 104 mmol/L (98-107) Carbon Dioxide Level 30 mmol/L (21-32) Anion Gap 9 (6-14) Blood Urea Nitrogen 8 mg/dL (7-20) Creatinine 0.7 mg/dL (0.6-1.0) Estimated GFR (Cockcroft-Gault) 104.7 BUN/Creatinine Ratio 11 (6-20) Glucose Level 212 mg/dL (70-99) H Calcium Level 9.8 mg/dL (8.5-10.1) Magnesium Level 1.3 mg/dL (1.8-2.4) L Total Bilirubin 0.4 mg/dL (0.2-1.0) Aspartate Amino Transferase (AST) 26 U/L (15-37) Alanine Aminotransferase (ALT) 27 U/L (14-59) Alkaline Phosphatase 88 U/L (46-116) Troponin I Quantitative < 0.017 ng/mL (0.000-0.055) NF-Xel-P-Type Natriuretic Peptide 49 pg/mL (0-124) Total Protein 7.3 g/dL (6.4-8.2) Albumin 3.6 g/dL (3.4-5.0) Albumin/Globulin Ratio 1.0 (1.0-1.7) Lipase 136 U/L (73-393) Thyroid Stimulating Hormone (TSH) 4.028 uIU/mL (0.358-3.74) H POC Troponin I 0.01 ng/ml (<0.08) Laboratory Tests 04/26/18 05:25 Laboratory Tests 04/26/18 05:25 (DARRON DANGELO DO) Lab Values Laboratory Tests Test 04/26/18 05:25 04/26/18 05:39 White Blood Count 8.7 x10^3/uL (4.0-11.0) Red Blood Count 3.71 x10^6/uL (3.50-5.40) Hemoglobin 11.5 g/dL (12.0-15.5) L Hematocrit 34.0 % (36.0-47.0) L Mean Corpuscular Volume 92 fL (79-100) Mean Corpuscular Hemoglobin 31 pg (25-35) Mean Corpuscular Hemoglobin Concent 34 g/dL (31-37) Red Cell Distribution Width 13.9 % (11.5-14.5) Platelet Count 397 x10^3/uL (140-400) Neutrophils (%) (Auto) 50 % (31-73) Lymphocytes (%) (Auto) 42 % (24-48) Monocytes (%) (Auto) 5 % (0-9) Eosinophils (%) (Auto) 2 % (0-3) Basophils (%) (Auto) 1 % (0-3) Neutrophils # (Auto) 4.4 x10^3uL (1.8-7.7) Lymphocytes # (Auto) 3.7 x10^3/uL (1.0-4.8) Monocytes # (Auto) 0.4 x10^3/uL (0.0-1.1) Eosinophils # (Auto) 0.2 x10^3/uL (0.0-0.7) Basophils # (Auto) 0.0 x10^3/uL (0.0-0.2) Sodium Level 143 mmol/L (136-145) Potassium Level 3.3 mmol/L (3.5-5.1) L Chloride Level 104 mmol/L (98-107) Carbon Dioxide Level 30 mmol/L (21-32) Anion Gap 9 (6-14) Blood Urea Nitrogen 8 mg/dL (7-20) Creatinine 0.7 mg/dL (0.6-1.0) Estimated GFR (Cockcroft-Gault) 104.7 BUN/Creatinine Ratio 11 (6-20) Glucose Level 212 mg/dL (70-99) H Calcium Level 9.8 mg/dL (8.5-10.1) Magnesium Level 1.3 mg/dL (1.8-2.4) L Total Bilirubin 0.4 mg/dL (0.2-1.0) Aspartate Amino Transferase (AST) 26 U/L (15-37) Alanine Aminotransferase (ALT) 27 U/L (14-59) Alkaline Phosphatase 88 U/L (46-116) Troponin I Quantitative < 0.017 ng/mL (0.000-0.055) SV-Hpk-Q-Type Natriuretic Peptide 49 pg/mL (0-124) Total Protein 7.3 g/dL (6.4-8.2) Albumin 3.6 g/dL (3.4-5.0) Albumin/Globulin Ratio 1.0 (1.0-1.7) Lipase 136 U/L (73-393) Thyroid Stimulating Hormone (TSH) 4.028 uIU/mL (0.358-3.74) H POC Troponin I 0.01 ng/ml (<0.08) Laboratory Tests 04/26/18 05:25 Laboratory Tests 04/26/18 05:25 ([facility]) EKG EKG EKG shows a sinus rhythm at 71 bpm, normal axis, normal QTC, no ST elevation. When compared with EKG of 06/26/2016, no acute changes are noted. EKG interpreted by me 0 519[] (MAYKEL MANN DO) Radiology/Procedures Radiology/Procedures Chest pain, sarcoidosis. COMPARISON: 10/31/2016, 06/26/2016. FINDINGS: A frontal view of the chest is obtained. Hyperinflation is consistent with chronic obstructive pulmonary disease. A lung suture line is noted in the right apex. There are no confluent infiltrates. An opacity in the left heart border is consistent with an epicardial fat pad as seen on prior CT. There is no pneumothorax or pleural effusion. The heart is not enlarged. Spinal stimulator electrodes are noted. IMPRESSION: 1. Chronic obstructive pulmonary disease. No confluent infiltrates.[] (MAYKEL MANN DO) Course & Med Decision Making Course & Med Decision Making Pertinent Labs and Imaging studies reviewed. (See chart for details) Medical decision making: Patient achieves a heart score of 4 due to her age, this history, as well as greater than 3 risk factors (hypertension, high cholesterol, and diabetes). This puts her at moderate risk of major adverse cardiac event. At the time of this dictation no labs or imaging studies are back. Patient does not have an ST elevation [place] on her EKG. Patient care was endorsed to the daytime physician at 0 600.[] (MAYKEL MANN DO) Course & Med Decision Making 0600- Sign out received from Dr. Mann for patient with significant cardiac risk factors who presented with report of chest pain. HEART SCORE 4. Labs reviewed. Potassium and Magnesium replaced. Initial troponin WNL. EKG stable. CXR clear. Patient seen and evaluated by myself. Patient requiring observation admission for further evaluation and treatment. Patient requiring admission for further evaluation and treatment. Discussed with Dr. Cabezas ( covering for PCP- Dr. Aguirre) who is in agreement with admission. Discussed findings and plan with patient and family, who acknowledge understanding and agreement. (DARRON DANGELO DO) Dragon Disclaimer Dragon Disclaimer This electronic medical record was generated, in whole or in part, using a voice recognition dictation system. (MAYKEL MANN DO) Departure Departure Impression: Primary Impression: Chest pain Disposition: ADMITTED INPATIENT (obs tele) Admitting Physician: Darron Cabezas (covering for Dr. Aguirre) (DARRON DANGELO DO) Condition: STABLE Referrals: AILEEN AGUIRRE MD (PCP) Problem Qualifiers Primary Impression: Chest pain Chest pain type: unspecified Qualified Codes: R07.9 - Chest pain, unspecified MAYKEL MANN DO Apr 26, 2018 05:39 DARRON DANGELO DO Apr 26, 2018 06:38
[2018-04-26 05:44] LABS: CALCIUM 9.8 mg/dL (8.5-10.1); CREATININE 0.7 mg/dL (0.6-1.0); GFR 104.7; POTASSIUM 3.3 mmol/L (3.5-5.1)
[2018-04-26 05:49] LABS: BASO % 1 % (0-3); EOS # 0.2 x10^3/uL (0.0-0.7); EOS % 2 % (0-3); HEMOGLOBIN 11.5 g/dL (12.0-15.5); LYMPH # 3.7 x10^3/uL (1.0-4.8); LYMPH % 42 % (24-48); MEAN CORPUSCULAR HEMOGLOBIN 31 pg (25-35); MEAN CORPUSCULAR HGB CONC 34 g/dL (31-37); MEAN CORPUSCULAR VOLUME 92 fL (79-100); MONO # 0.4 x10^3/uL (0.0-1.1); MONO % 5 % (0-9); NEUT # 4.4 x10^3uL (1.8-7.7); NEUT % 50 % (31-73); PLATELET COUNT 397 x10^3/uL (140-400); RED BLOOD COUNT 3.71 x10^6/uL (3.50-5.40); RED CELL DISTRIBUTION WIDTH 13.9 % (11.5-14.5); WHITE BLOOD COUNT 8.7 x10^3/uL (4.0-11.0)
[2018-04-26 05:52] LABS: ALBUMIN 3.6 g/dL (3.4-5.0); MAGNESIUM 1.3 mg/dL (1.8-2.4); TOTAL BILIRUBIN 0.4 mg/dL (0.2-1.0); TOTAL PROTEIN 7.3 g/dL (6.4-8.2)
--- NOTE | 2018-04-26 05:56 | RAD ---
EXAM: CHEST 1 VIEW. HISTORY: Chest pain, sarcoidosis. COMPARISON: 10/31/2016, 06/26/2016. FINDINGS: A frontal view of the chest is obtained. Hyperinflation is consistent with chronic obstructive pulmonary disease. A lung suture line is noted in the right apex. There are no confluent infiltrates. An opacity in the left heart border is consistent with an epicardial fat pad as seen on prior CT. There is no pneumothorax or pleural effusion. The heart is not enlarged. Spinal stimulator electrodes are noted. IMPRESSION: 1. Chronic obstructive pulmonary disease. No confluent infiltrates. Electronically signed by: Hugh Munoz MD (04/26/2018 5:52 AM) [id number]
[2018-04-26 06:00] LABS: PROTHROMBIN TIME PATIENT 13.6 SEC (11.7-14.0)
[2018-04-26] MEDS ORDERED: ONDANSETRON PF 4 MG/2 ML VIAL. IV PRN (06:45)
[2018-04-26] MEDS ORDERED: fentaNYL PF VIAL 100 MCG/2 ML VIAL IV PRN (06:45)
[2018-04-26] MEDS ORDERED: MAGNESIUM SULFATE 2GM 50 ML IV ONE (07:00)
[2018-04-26] MEDS ORDERED: POTASSIUM CHLORIDE 20 MEQ TABLET.ER. PO ONE (07:00)
[2018-04-26] MEDS ORDERED: DEXTROSE 50% 25 GM / 50ML DISP.SYRIN. IV PRN (07:15)
--- NOTE | 2018-04-26 07:44 | EKG ---
[facility] [address] [place] [address] Test Date: 2018-04-26 Test Time: 05:17:53 Pat Name: EFRAIN DEAN Department: Room: 204 1 Gender: F Passenger Agent: : [id number] Requested By: MAYKEL MANRIQUE Order Number: [id number] Reading MD: Corey Cleaning Measurements Intervals [place] Rate: 70 P: 71 OR: 142 QRS: 2 QRSD: 92 T: 41 QT: 438 QTc: 476 Interpretive Statements SINUS RHYTHM R-S TRANSITION ZONE IN V LEADS DISPLACED TO THE LEFT PROLONGED QT Electronically Signed On 04-27-2018 10:07:41 [employer] by Corey Cleaning
[2018-04-26] MEDS: INSULIN LISPRO 300 UNITS/3 ML INSULN.PEN. SQ SCH ×3 (08:00→16:58)
[2018-04-26 08:10] VITALS: BP 106/65
[2018-04-26] MEDS ORDERED: FLUTICASONE 50MCG/NASAL SPRAY 16GM BOTTLE. NS PRN (08:30)
[2018-04-26] MEDS ORDERED: NON FORMULARY ITEM (Tiotropium Br/Olodaterol HCl (Stiolto Respimat Inhal Spray) 4 GM) IH SCH (09:00)
[2018-04-26] MEDS ORDERED: hydroCHLOROthiazide 25 MG TABLET PO SCH (09:00)
[2018-04-26] MEDS ORDERED: METOPROLOL SUCC 24HR ER 25 MG TAB.ER.24H. PO SCH (09:00)
[2018-04-26] MEDS ORDERED: ENOXAPARIN 40 MG/0.4 ML SYRINGE. SQ SCH (09:00)
[2018-04-26] MEDS ORDERED: ASPIRIN ENTERIC COATED 81 MG TABLET.DR. PO SCH (09:00)
[2018-04-26] MEDS ORDERED: CHOLECALCIFEROL (VITAMIN D3) 1,000 UNIT TABLET PO SCH (09:00)
[2018-04-26] MEDS ORDERED: OMEGA-3 FATTY ACIDS/FISH OIL 1,000 MG CAPSULE. PO SCH (09:00)
[2018-04-26] MEDS ORDERED: CETIRIZINE HCL 10 MG TABLET. PO SCH (09:00)
[2018-04-26] MEDS ORDERED: LOSARTAN POTASSIUM 50 MG TABLET. PO SCH (09:00)
[2018-04-26] MEDS ORDERED: GLIMEPIRIDE 2 MG TABLET. PO SCH (09:00)
[2018-04-26] MEDS ORDERED: LINAGLIPTIN 5 MG TABLET PO SCH (09:00)
[2018-04-26] MEDS ORDERED: CYCL10TA2 PO (09:41)
--- NOTE | 2018-04-26 09:45 | PDOC2 ---
CONSULT Date of Consult Date of Consult DATE: 04/26/18 TIME: 09:43 Reason for Consult Reason for Consult: Chest pain Referring Physician Referring Physician: Dr. Cabezas Identification/Chief Complaint Chief Complaint Chest pain Source Source: Chart review, Patient History of Present Illness Reason for Visit: 57-year-old female without any previous cardiac history presented complaining of retrosternal chest pressure that woke her up from sleep last night. She stated that it was difficult to breathe at that time but denied any orthopnea/ PND, palpitations or syncope. She denied any chest pain or dyspnea on exertion. Past Medical History Past Medical History Hypertension Diabetes mellitus type 2 Sarcoidosis Gastroesophageal reflux disease Hyperlipidemia Osteoarthritis Diverticulosis Lumbar spinal stenosis Past Surgical History Past Surgical History Hysterectomy Multiple back surgeries Lumpectomy Fibroid tumor removal Shoulder surgery Family History Family History Positive for hypertension and cancer and negative for premature coronary artery disease Social History Social History Patient quit smoking 5 years ago and denied any alcohol or drug use Current Problem List Problem List Problems Medical Problems: (1) Chest pain Status: Acute Current Medications Current Medications Current Medications Magnesium Sulfate 50 ml @ 25 mls/hr 1X ONCE IV Last administered on 04/26/18at 06:54; Start 04/26/18 at 07:00; Stop 04/26/18 at 08:59; Status DC Potassium Chloride (Klor-Con) 40 meq 1X ONCE PO Last administered on 04/26/18at 06:53; Start 04/26/18 at 07:00; Stop 04/26/18 at 07:01; Status DC Ondansetron HCl (Zofran) 4 mg PRN Q8HRS PRN IV NAUSEA/VOMITING 1ST CHOICE; Start 04/26/18 at 06:45; Stop 04/27/18 at 06:44 Fentanyl Citrate (Fentanyl 2ml Vial) 50 mcg PRN Q2HRS PRN IV SEVERE PAIN; Start 04/26/18 at 06:45 Insulin Human Lispro (HumaLOG) 0-5 UNITS TIDWMEALS SQ ; Start 04/26/18 at 08:00 Dextrose (Dextrose 50%-Water Syringe) 12.5 gm PRN Q15MIN PRN IV SEE COMMENTS; Start 04/26/18 at 07:15 Amlodipine Besylate (Norvasc) 5 mg HS PO ; Start 04/26/18 at 21:00 Aspirin (Ecotrin) 81 mg DAILY PO ; Start 04/26/18 at 09:00 Cyclobenzaprine HCl (Flexeril) 10 mg TID PO ; Start 04/26/18 at 09:00 Fluticasone Propionate (Flonase) 2 spray PRN DAILY PRN NS ALLERGIES; Start 04/26 at 08:30 Metoprolol Succinate (Toprol Xl) 50 mg DAILY PO ; Start 04/26/18 at 09:00 Vitamin D (Vitamin D3) 1,000 unit DAILY PO ; Start 04/26/18 at 09:00 Glimepiride (Amaryl) 4 mg DAILY PO ; Start 04/26/18 at 09:00 Losartan Potassium (Cozaar) 100 mg DAILY PO ; Start 04/26/18 at 09:00 Magnesium Oxide (Magnesium Oxide) 400 mg QHS PO ; Start 04/26/18 at 21:00 Metformin HCl (Glucophage) 1,000 mg BIDWMEALS PO ; Start 04/26/18 at 08:30 Fish Oil (Fish Oil) 2,000 mg BID PO ; Start 04/26/18 at 09:00 Pantoprazole Sodium (Protonix) 40 mg DAILYAC PO ; Start 04/26/18 at 11:30 Atorvastatin Calcium (Lipitor) 5 mg QHS PO ; Start 04/26/18 at 21:00 Linagliptin (Tradjenta) 5 mg DAILY PO ; Start 04/26/18 at 09:00 Non-Formulary Medication (Tiotropium Br/ Olodaterol HCl (Stiolto Respimat Inhal Huntley)) 4 gm DAILY IH ; Start 04/26/18 at 09:00; Status UNV Cetirizine HCl (ZyrTEC) 10 mg DAILY PO ; Start 04/26/18 at 09:00 Enoxaparin Sodium (Lovenox 40mg Syringe) 40 mg Q24H SQ ; Start 04/26/18 at 09:00 Hydrochlorothiazide (Hydrodiuril) 25 mg DAILY PO ; Start 04/26/18 at 09:00 Active Scripts Active Cyclobenzaprine Hcl 10 Mg Tablet 1 Tab PO QHS Reported Percocet 10-325 Mg Tablet (Oxycodone/Acetaminophen) 1 Each Tablet 1 Tab PO Q3HRS Pravastatin Sodium 20 Mg Tablet 1 Tab PO QHS Omeprazole 20 Mg Tablet.dr 1 Tab PO DAILY Amlodipine Besylate 5 Mg Tablet 5 Mg PO HS Metoprolol Succinate ( Xl ) (Metoprolol Succinate) 25 Mg Tab.er.24h 50 Mg PO DAILY Glimepiride 4 Mg Tablet 1 Tab PO DAILY Januvia (Sitagliptin Phosphate) 100 Mg Tablet 1 Tab PO DAILY Stiolto Respimat Inhal Huntley (Tiotropium Br/Olodaterol HCl) 4 Gm Mist.inhal 4 Gm IH DAILY Ibuprofen 800 Mg Tablet 800 Mg PO PRN Q8HRS PRN Fluticasone Propionate Nasal Huntley (Fluticasone Propionate) 16 Gm Huntley.susp 2 Huntley NS PRN DAILY PRN Cyclobenzaprine Hcl 10 Mg Tablet 1 Tab PO TID Vitamin D3 (Cholecalciferol (Vitamin D3)) 1,000 Unit Capsule 1,000 Unit PO DAILY Mag-Oxide (Magnesium Oxide) 400 Mg Tablet 400 Mg PO HS Aspir 81 (Aspirin) 81 Mg Tablet.dr 1 Tab PO DAILY Loratadine 10 Mg Tablet 1 Tab PO DAILY Hercules 3 Fish Oil Softgel (Hercules-3 Fatty Acids/Fish Oil) 1 Each Capsule.dr 2 Each PO BID Metformin Hcl 1,000 Mg Tablet 1 Tab PO BID Losartan-Hctz 100-25 Mg Tab (Losartan/Hydrochlorothiazide) 1 Each Tablet 1 Tab PO DAILY Allergies Allergies: Coded Allergies: hydrocodone (Verified Adverse Reaction, Intermediate, headache, 11/04/16) morphine (Verified Adverse Reaction, Intermediate, headache, 11/04/16) propoxyphene (Verified Adverse Reaction, Intermediate, HEADACHE, 11/04/16) ROS PSYCHOLOGICAL ROS: No: Hallucinations Eyes: No Loss of vision HEENT: No: Epistaxis Respiratory: YES: Shortness of breath; No: Hemoptysis Cardiovascular: yes Chest Pain; No Palpitations Gastrointestinal: No Vomiting, No Diarrhea Neurological: No Seizures Skin: No Rash Physical Exam General: Alert, Oriented X3 HEENT: Atraumatic, PERRLA Lungs: Clear to auscultation Heart: Regular rate Abdomen: Soft, No tenderness Extremities: No edema Psych/Mental Status: Mood NL Vitals VITALS Vital Signs Date Time Temp Pulse Resp B/P (MAP) Pulse Ox O2 Delivery O2 Flow Rate FiO2 04/26/18 08:10 97.2 65 18 106/65 (79) 99 Room Air 97.2 Labs Labs Laboratory Tests Test 04/26/18 05:25 04/26/18 05:39 04/26/18 08:13 White Blood Count 8.7 x10^3/uL (4.0-11.0) Red Blood Count 3.71 x10^6/uL (3.50-5.40) Hemoglobin 11.5 g/dL (12.0-15.5) Hematocrit 34.0 % (36.0-47.0) Mean Corpuscular Volume 92 fL (79-100) Mean Corpuscular Hemoglobin 31 pg (25-35) Mean Corpuscular Hemoglobin Concent 34 g/dL (31-37) Red Cell Distribution Width 13.9 % (11.5-14.5) Platelet Count 397 x10^3/uL (140-400) Neutrophils (%) (Auto) 50 % (31-73) Lymphocytes (%) (Auto) 42 % (24-48) Monocytes (%) (Auto) 5 % (0-9) Eosinophils (%) (Auto) 2 % (0-3) Basophils (%) (Auto) 1 % (0-3) Neutrophils # (Auto) 4.4 x10^3uL (1.8-7.7) Lymphocytes # (Auto) 3.7 x10^3/uL (1.0-4.8) Monocytes # (Auto) 0.4 x10^3/uL (0.0-1.1) Eosinophils # (Auto) 0.2 x10^3/uL (0.0-0.7) Basophils # (Auto) 0.0 x10^3/uL (0.0-0.2) Prothrombin Time 13.6 SEC (11.7-14.0) Prothromb Time International Ratio 1.1 (0.8-1.1) Sodium Level 143 mmol/L (136-145) Potassium Level 3.3 mmol/L (3.5-5.1) Chloride Level 104 mmol/L (98-107) Carbon Dioxide Level 30 mmol/L (21-32) Anion Gap 9 (6-14) Blood Urea Nitrogen 8 mg/dL (7-20) Creatinine 0.7 mg/dL (0.6-1.0) Estimated GFR (Cockcroft-Gault) 104.7 BUN/Creatinine Ratio 11 (6-20) Glucose Level 212 mg/dL (70-99) Calcium Level 9.8 mg/dL (8.5-10.1) Magnesium Level 1.3 mg/dL (1.8-2.4) Total Bilirubin 0.4 mg/dL (0.2-1.0) Aspartate Amino Transf (AST/SGOT) 26 U/L (15-37) Alanine Aminotransferase (ALT/SGPT) 27 U/L (14-59) Alkaline Phosphatase 88 U/L (46-116) Troponin I Quantitative < 0.017 ng/mL (0.000-0.055) QX-Rzm-J-Type Natriuretic Peptide 49 pg/mL (0-124) Total Protein 7.3 g/dL (6.4-8.2) Albumin 3.6 g/dL (3.4-5.0) Albumin/Globulin Ratio 1.0 (1.0-1.7) Lipase 136 U/L (73-393) Thyroid Stimulating Hormone (TSH) 4.028 uIU/mL (0.358-3.74) Bedside Troponin I 0.01 ng/ml (<0.08) Glucose (Fingerstick) 173 mg/dL (70-99) Laboratory Tests Test 04/26/18 05:25 04/26/18 05:39 04/26/18 08:13 White Blood Count 8.7 x10^3/uL (4.0-11.0) Red Blood Count 3.71 x10^6/uL (3.50-5.40) Hemoglobin 11.5 g/dL (12.0-15.5) Hematocrit 34.0 % (36.0-47.0) Mean Corpuscular Volume 92 fL (79-100) Mean Corpuscular Hemoglobin 31 pg (25-35) Mean Corpuscular Hemoglobin Concent 34 g/dL (31-37) Red Cell Distribution Width 13.9 % (11.5-14.5) Platelet Count 397 x10^3/uL (140-400) Neutrophils (%) (Auto) 50 % (31-73) Lymphocytes (%) (Auto) 42 % (24-48) Monocytes (%) (Auto) 5 % (0-9) Eosinophils (%) (Auto) 2 % (0-3) Basophils (%) (Auto) 1 % (0-3) Neutrophils # (Auto) 4.4 x10^3uL (1.8-7.7) Lymphocytes # (Auto) 3.7 x10^3/uL (1.0-4.8) Monocytes # (Auto) 0.4 x10^3/uL (0.0-1.1) Eosinophils # (Auto) 0.2 x10^3/uL (0.0-0.7) Basophils # (Auto) 0.0 x10^3/uL (0.0-0.2) Prothrombin Time 13.6 SEC (11.7-14.0) Prothromb Time International Ratio 1.1 (0.8-1.1) Sodium Level 143 mmol/L (136-145) Potassium Level 3.3 mmol/L (3.5-5.1) Chloride Level 104 mmol/L (98-107) Carbon Dioxide Level 30 mmol/L (21-32) Anion Gap 9 (6-14) Blood Urea Nitrogen 8 mg/dL (7-20) Creatinine 0.7 mg/dL (0.6-1.0) Estimated GFR (Cockcroft-Gault) 104.7 BUN/Creatinine Ratio 11 (6-20) Glucose Level 212 mg/dL (70-99) Calcium Level 9.8 mg/dL (8.5-10.1) Magnesium Level 1.3 mg/dL (1.8-2.4) Total Bilirubin 0.4 mg/dL (0.2-1.0) Aspartate Amino Transf (AST/SGOT) 26 U/L (15-37) Alanine Aminotransferase (ALT/SGPT) 27 U/L (14-59) Alkaline Phosphatase 88 U/L (46-116) Troponin I Quantitative < 0.017 ng/mL (0.000-0.055) PH-Dqr-D-Type Natriuretic Peptide 49 pg/mL (0-124) Total Protein 7.3 g/dL (6.4-8.2) Albumin 3.6 g/dL (3.4-5.0) Albumin/Globulin Ratio 1.0 (1.0-1.7) Lipase 136 U/L (73-393) Thyroid Stimulating Hormone (TSH) 4.028 uIU/mL (0.358-3.74) Bedside Troponin I 0.01 ng/ml (<0.08) Glucose (Fingerstick) 173 mg/dL (70-99) Assessment/Plan Assessment/Plan 1. Chest pain with atypical features. Myocardial infarction ruled out. She has multiple cardiac risk risk factors. Plan for 2-D echo and Lexiscan nuclear stress test for further evaluation - could be done as an outpatient. 2. Hypertension: Controlled 3. Hyperlipidemia: Continue statin therapy 4. Diabetes mellitus type 2: Continue current treatment per IM Thank you for your consultation NAN KHAN MD Apr 26, 2018 09:45
[2018-04-26 10:23] VITALS: BP 93/59
--- NOTE | 2018-04-26 10:24 | HP ---
ADMIT DATE: 04/26/2018 ADMIT DIAGNOSIS: Chest pain. DISMISSAL DIAGNOSIS: Chest wall pain. SECONDARY DIAGNOSES: 1. Type 2 diabetes. 2. Hypertension. 3. High cholesterol. 4. Osteoarthritis. 5. L-spine spinal stenosis. 6. Gastroesophageal reflux disease. HISTORY OF PRESENT ILLNESS AND HOSPITAL COURSE: This patient is a 57-year-old female with multiple risk factors, came to the Emergency Room, complaining of acute onset of chest pressure that awoke her from sleep. It was different with moving to the side where she had no shortness of breath, no nausea, no diaphoresis and no radiation. She attempted to change positions and pain became unrelenting and she called 911. During the EMS transfer, the patient's pain abated after taking several aspirin. She did not take nitroglycerin and came to the Emergency Room for evaluation, had negative troponins and EKG, but due to multiple risk factors, she was admitted for cardiology evaluation. Cardiology did see the patient and felt that pain was noncardiac, but did set up an outpatient stress test after a negative echo. Echo was pending at time of this dictation. PAST MEDICAL HISTORY: Significant for: 1. Type 2 diabetes. 2. Hyperlipidemia. 3. Sarcoidosis. 4. Chronic leukocytosis and thrombocytosis. 5. Hypertension. 6. Osteoarthritis. 7. History of diverticulosis. 8. Gastroesophageal reflux disease. 9. Lumbar spinal stenosis. PAST SURGICAL HISTORY: Significant for hysterectomy with bilateral oophorectomy, multiple back surgeries, removal of breast lump, open lung biopsy, fibroid tumor removal, shoulder surgery on the left x 2, pilonidal cyst excision. FAMILY HISTORY: Significant for father who with complications of diabetes, maternal uncle who with cancer, multiple people with diabetes and hypertension on paternal side of the family. Mother is alive and well. SOCIAL HISTORY: The patient is a former smoker, but has not smoked for up to 5 years. She does not use alcohol. She does live alone. She is single and currently unemployed, on disability for back disease. ALLERGIES: THE PATIENT EXHIBITS ALLERGIES TO DARVOCET, HYDROCODONE AND MORPHINE. REVIEW OF SYSTEMS: Negative for diaphoresis, nausea, vomiting, diarrhea, shortness of breath, recent weight loss or weight gain, cough or congestion. PHYSICAL EXAMINATION: GENERAL: This is a well-nourished, moderately obese female in no distress on my exam, she is alert and oriented x 3. HEENT: Benign. NECK: Supple, without JVD or bruit. CARDIAC: Regular rate and rhythm. LUNGS: Clear. She did have a reproducible chest pain on left side with palpation. ABDOMEN: Soft, nontender, without masses. EXTREMITIES: She had 2+ pulses without significant edema. NEUROLOGIC: Showed no unilateral findings. ASSESSMENT: 1. Chest wall pain. 2. Multiple risk factors for coronary artery disease. PLAN: To proceed with cardiology evaluation and echocardiogram and outpatient stress testing, discharge the patient to home if stable. REJI JOSÉ MD DR: EDU/bibi JOB#: [id number] / [id number]
[2018-04-26] MEDS: CYCLOBENZAPRINE 10 MG TABLET. PO SCH ×2 (10:44→14:47)
[2018-04-26] MEDS: metFORMIN 500 MG TABLET PO SCH ×2 (10:45→16:57)
[2018-04-26] MEDS ORDERED: PANTOPRAZOLE 40 MG TABLET.DR. PO SCH (11:30)
[2018-04-26 14:41] VITALS: BP 110/60
--- NOTE | 2018-04-26 17:52 | NUR ---
Discharge Note: EFRAIN DEAN Discharge instructions and discharge home medications reviewed with Patient and a copy given. All questions have been answered and understanding verbalized. The following instructions and handouts were given: Follow up, worsening symptoms, and medications. Discontinued lines and drains: IV discontinued, and skin intact. Patient discharged to home with mom, via private transportation.
[2018-04-26] MEDS ORDERED: MAGNESIUM OXIDE 400 MG TABLET PO SCH (21:00)
[2018-04-26] MEDS ORDERED: amLODIPine BESYLATE 5 MG TABLET PO SCH (21:00)
[2018-04-26] MEDS ORDERED: ATORVASTATIN CALCIUM 10 MG TABLET. PO SCH (21:00)
--- NOTE | 2018-04-27 08:36 | CARD ---
MR#: [id number] Date of Study: 04/26/2018 Ordering Physician: NAN BARDALES, Referring Physician: AILEEN MARQUES Tech: Destiny Arcos RDCS APPROVED REPORT EXAM: Two-dimensional and M-mode echocardiogram with Doppler and color Doppler. Other Information Quality : GoodHR: 55bpm Rhythm : Bradycardia INDICATION Chest Pain 2D DIMENSIONS Left Atrium(2D)2.7 (1.6-4.0cm)IVSd0.9 (0.7-1.1cm) Aortic Root(2D)2.5 (2.0-3.7cm)LVDd4.0 (3.9-5.9cm) LVOT Diameter2.2 (1.8-2.4cm)PWd0.9 (0.7-1.1cm) LA Wrsjfg12 (18-58mL)LVDs2.5 (2.5-4.0cm) FS (%) 36.9 %SV47.8 ml LVEF(%)67.3 (>50%)CO2.6 L/min M-Mode DIMENSIONS Aortic Cusp Exc1.96 (1.5-2.0cm) Aortic Valve AoV Peak Derrick.113.0cm/sAoV VTI24.5cm AO Peak GR.5.1mmHgLVOT VTI 19.05cm AO Mean GR.3mmHgAVA (VTI)3.00cm2 Mitral Valve MV E Yllvcfwp68.6cm/sMV DECEL [id number] MV A Fxgxmmwe59.0cm/sE/A Ratio1.3 MV A [id number] TDI Lateral E' P. V7.94cm/sMedial E' P. V6.45cm/s E/Lateral E'10.7E/Medial E'13.1 Pulmonary Valve PV Peak Wwwcruwl72.8cm/s Tricuspid Valve TR P. Nenomndz549ut/sRAP [id number] TR Peak Gr.67ncBjRSJD27ynOx Pulmonary Vein S1 Bmmahtpp39.3cm/sS2 Ezduvpha77.33cm/s D2 Xdycjcaq23.3cm/s LEFT VENTRICLE The left ventricle is normal size. There is normal left ventricular wall thickness. The left ventricu lar systolic function is normal. The ejection fraction is estimated at 60-65%. There is normal LV seg mental wall motion. The left ventricular diastolic function and filling is normal for age. No left ve ntricle thrombus noted on this study. There is no ventricular septal defect visualized. There is no l eft ventricular aneurysm. There is no mass noted in the left ventricle. RIGHT VENTRICLE The right ventricle is normal size. There is normal right ventricular wall thickness. The right ventr icular systolic function is normal. ATRIA The left atrium size is normal. The right atrium size is normal. The interatrial septum is intact wit h no evidence for an atrial septal defect or patent foramen ovale as noted on 2-D or Doppler imaging. AORTIC VALVE The aortic valve is normal in structure and function. Doppler and Color Flow revealed no significant aortic regurgitation. There is no significant aortic valvular stenosis. There is no aortic valvular v egetation. MITRAL VALVE The mitral valve is normal in structure and function. There is no evidence of mitral valve prolapse. There is no mitral valve stenosis. Doppler and Color Flow revealed no mitral valve regurgitation note d. TRICUSPID VALVE The tricuspid valve is normal in structure and function. Doppler and Color Flow revealed mild tricusp id regurgitation. There is no tricuspid valve prolapse or vegetation. There is no tricuspid valve kemar nosis. PULMONIC VALVE The pulmonary valve is normal in structure and function. Doppler and Color Flow revealed trace pulmon ic valvular regurgitation. There is no pulmonic valvular stenosis. GREAT VESSELS The aortic root is normal in size. The IVC is normal in size and collapses >50% with inspiration. PERICARDIAL EFFUSION There is no pleural effusion. There is no evidence of significant pericardial effusion. Critical Notification Critical Value: No <Conclusion> The left ventricular systolic function is normal. The ejection fraction is estimated at 60-65%. There is normal LV segmental wall motion. Doppler and Color Flow revealed mild tricuspid regurgitation. There is no evidence of significant pericardial effusion. Signed by : Nan Bardales, Electronically Approved : 04/27/2018 08:33:56
== END 2018-04-26 17:58 | disposition home or self-care (01) ==
LOC: ER 05:10 → 2 NORTH 07:00
PROVIDERS: ADMIT Family Medicine; ATTEND Family Medicine
DX: R07.89 Other chest pain (principal); E11.9 Type 2 diabetes mellitus without complications; I10 Essential (primary) hypertension; M19.90 Unspecified osteoarthritis, unspecified site; M48.061 Spinal stenosis, lumbar region without neurogenic claudication; K21.9 Gastro-esophageal reflux disease without esophagitis; E78.5 Hyperlipidemia, unspecified; D86.9 Sarcoidosis, unspecified; J44.9 Chronic obstructive pulmonary disease, unspecified; Z87.891 Personal history of nicotine dependence; Z83.3 Family history of diabetes mellitus; Z90.710 Acquired absence of both cervix and uterus; Z82.49 Family history of ischemic heart disease and other diseases of the circulatory system
CPT/HCPCS: 36415; 71045; 80053; 82962; 83690; 83735; 83880; 84443; 84484; 85025; 85610; 93005; 93306; 96365; 96366; 96372; 99284; G0378; J1650; J1815; J3475; G0379

== ENCOUNTER 2018-07-04 08:23 | Emergency (ER) | payer OTHER ==
[~2018-07-04] VITALS: Ht 165.1 cm; Wt 73.9 kg
[~2018-07-04 08:23] MED LIST changes: +AMLO5TAB10 PO; -AMLO5TAB7 PO
[2018-07-04] MEDS ORDERED: IV NORMAL SALINE 1000ML BAG 1,000 ML IV SCH (08:59)
--- NOTE | 2018-07-04 09:07 | PHYS DOC ---
Past Medical History Past Medical History: Diabetes-Type II, Diverticulitis, High Cholesterol, Hypertension Additional Past Medical Histor: chronic back pain, sarcoidosis, pilonidal cyst Past Surgical History: Hysterectomy Additional Past Surgical Histo: back surgery- spinal cord stimulator, lumpectomy, cyst Alcohol Use: Occasionally Drug Use: None Adult General Chief Complaint Chief Complaint: ABDOMINAL PAIN HPI HPI Patient is a 57 year old female who presents with complaining of left lower quadrant pain. Patient complaining of sudden onset of intermittent episodes of left lower quadrant pain since yesterday afternoon as a sharp pain without radiation that getting worse with urination and having bowel movements and sitting up. Patient stated the pain was as high as 8/10 and denies any pain or this time. Patient complaining of nausea and urinary frequency and dysuria and states she was not able to empty her bladder. Patient denies anorexia, vomiting , fever and chills, diarrhea and constipation, recent dehydration. Patient states she had abdominal cramping yesterday morning like her menstruation but she had hysterectomy long time ago. Patient states she took ibuprofen yesterday without improvement of her pain and was not able to sleep last night because of constant pain. Review of Systems Review of Systems Constitutional: Denies fever or chills [] Eyes: Denies change in visual acuity, redness, or eye pain [] HENT: Denies nasal congestion or sore throat [] Respiratory: Denies cough or shortness of breath [] Cardiovascular: No additional information not addressed in HPI [] GI: Reports abdominal pain, nausea, denies vomiting, bloody stools or diarrhea [ ] : Denies hematuria, reports dysuria and urinary hesitancy [] Musculoskeletal: Denies back pain or joint pain [] Integument: Denies rash or skin lesions [] Neurologic: Denies headache, focal weakness or sensory changes [] Endocrine: Denies polyuria or polydipsia [] All other systems were reviewed and found to be within normal limits, except as documented in this note. Current Medications Current Medications Current Medications Medications (Trade) Dose Ordered Sig/Misty Start Time Stop Time Status Last Admin Dose Admin Fentanyl Citrate (Fentanyl 2ml Vial) 50 mcg 1X ONCE 07/04/18 09:30 07/04/18 09:31 DC 07/04/18 09:42 50 MCG Ketorolac Tromethamine (Toradol 30mg Vial) 30 mg 1X ONCE 07/04/18 10:30 07/04/18 10:31 DC 07/04/18 10:27 30 MG Ondansetron HCl (Zofran) 4 mg 1X ONCE 07/04/18 09:30 07/04/18 09:31 DC 07/04/18 09:41 4 MG Potassium Chloride (Klor-Con) 40 meq 1X ONCE 07/04/18 10:30 07/04/18 10:31 DC 07/04/18 10:27 40 MEQ Sodium Chloride 1,000 ml @ 1,000 mls/hr Q1H 07/04/18 08:59 07/04/18 09:58 DC 07/04/18 09:10 1,000 MLS/HR Allergies Allergies Allergies Coded Allergies Type Severity Reaction Last Updated Verified hydrocodone Adverse Reaction Intermediate headache 11/04/16 Yes morphine Adverse Reaction Intermediate headache 11/04/16 Yes propoxyphene Adverse Reaction Intermediate HEADACHE 11/04/16 Yes Physical Exam Physical Exam Constitutional: Well developed, well nourished, no acute distress, non-toxic appearance. [] HENT: Normocephalic, atraumatic, oropharynx moist. Eyes: PERRLA, EOMI, conjunctiva normal, no discharge. [] Neck: Normal range of motion, no tenderness, supple, no stridor. [] Cardiovascular:Heart rate regular rhythm, no murmur [] Lungs & Thorax: Bilateral breath sounds clear to auscultation [] Abdomen: Bowel sounds normal, soft, no tenderness, no masses, no pulsatile masses. [] Skin: Warm, dry, no erythema, no rash. [] Back: No tenderness, no CVA tenderness. [] Extremities: No tenderness, no cyanosis, no clubbing, ROM intact, no edema. [] Neurologic: Alert and oriented X 3, normal motor function, normal sensory function, no focal deficits noted. [] Psychologic: Affect normal, judgement normal, mood normal. [] Current Patient Data Vital Signs Vital Signs Date Time Temp Pulse Resp B/P (MAP) Pulse Ox O2 Delivery O2 Flow Rate FiO2 07/04/18 10:30 53 16 129/81 (97) 99 Room Air 07/04/18 08:30 97.9 97.9 Lab Values Laboratory Tests Test 07/04/18 09:00 07/04/18 09:55 White Blood Count 11.1 x10^3/uL (4.0-11.0) H Red Blood Count 4.04 x10^6/uL (3.50-5.40) Hemoglobin 12.3 g/dL (12.0-15.5) Hematocrit 37.0 % (36.0-47.0) Mean Corpuscular Volume 92 fL (79-100) Mean Corpuscular Hemoglobin 30 pg (25-35) Mean Corpuscular Hemoglobin Concent 33 g/dL (31-37) Red Cell Distribution Width 14.3 % (11.5-14.5) Platelet Count 422 x10^3/uL (140-400) H Neutrophils (%) (Auto) 58 % (31-73) Lymphocytes (%) (Auto) 36 % (24-48) Monocytes (%) (Auto) 5 % (0-9) Eosinophils (%) (Auto) 1 % (0-3) Basophils (%) (Auto) 0 % (0-3) Neutrophils # (Auto) 6.4 x10^3uL (1.8-7.7) Lymphocytes # (Auto) 4.0 x10^3/uL (1.0-4.8) Monocytes # (Auto) 0.5 x10^3/uL (0.0-1.1) Eosinophils # (Auto) 0.1 x10^3/uL (0.0-0.7) Basophils # (Auto) 0.0 x10^3/uL (0.0-0.2) Sodium Level 141 mmol/L (136-145) Potassium Level 3.4 mmol/L (3.5-5.1) L Chloride Level 101 mmol/L (98-107) Carbon Dioxide Level 29 mmol/L (21-32) Anion Gap 11 (6-14) Blood Urea Nitrogen 10 mg/dL (7-20) Creatinine 0.8 mg/dL (0.6-1.0) Estimated GFR (Cockcroft-Gault) 89.8 BUN/Creatinine Ratio 13 (6-20) Glucose Level 150 mg/dL (70-99) H Calcium Level 9.6 mg/dL (8.5-10.1) Total Bilirubin 0.4 mg/dL (0.2-1.0) Aspartate Amino Transferase (AST) 14 U/L (15-37) L Alanine Aminotransferase (ALT) 19 U/L (14-59) Alkaline Phosphatase 94 U/L (46-116) Total Protein 8.2 g/dL (6.4-8.2) Albumin 3.9 g/dL (3.4-5.0) Albumin/Globulin Ratio 0.9 (1.0-1.7) L Lipase 113 U/L (73-393) Urine Collection Type Void Urine Color Yellow Urine Clarity Clear Urine pH 6.5 Urine Specific [place] 1.010 Urine Protein Negative mg/dL (NEG-TRACE) Urine Glucose (UA) Negative mg/dL (NEG) Urine Ketones (Stick) Negative mg/dL (NEG) Urine Blood Negative (NEG) Urine Nitrite Negative (NEG) Urine Bilirubin Negative (NEG) Urine Urobilinogen Dipstick 0.2 mg/dL (0.2 mg/dL) Urine Leukocyte Esterase Negative (NEG) Urine RBC Occ /HPF (0-2) Urine WBC Occ /HPF (0-4) Urine Squamous Epithelial Cells Few /LPF Urine Bacteria Few /HPF (0-FEW) Urine Mucus Slight /LPF Laboratory Tests 07/04/18 09:00 Laboratory Tests 07/04/18 09:00 EKG EKG [] Radiology/Procedures Radiology/Procedures [facility] [address] [place] [address] IMAGING REPORT Signed PATIENT: EFRAIN DEAN ACCOUNT: [id number] : 1960 LOCATION: ER AGE: 57 SEX: F EXAM STATUS: REG ER ORD. PHYSICIAN: ANNIE HAND MD REASON: intermitent episodes of left lower quadrant pain PROCEDURE: CT ABDOMEN PELVIS WO CONTRAST CT abdomen and pelvis without contrast. HISTORY: Left lower quadrant pain, nausea CT scan of the abdomen and pelvis was done without contrast. Lung bases are free of infiltrates. There is no effusion. There is a spinal stimulator. A liver lesion is not identified. There is density in the gallbladder from sludge or gallstones. Spleen and adrenal glands are normal. Pancreas is unremarkable. There is no mass or hydronephrosis in the kidneys. There is no adenopathy or ascites or free air. There is no bowel obstruction. Appendix is normal. There is diverticulosis of the colon. There is minimal pericolonic inflammation at the junction of the descending colon and sigmoid colon in lateral pelvis on the left suggesting a mild diverticulitis. There is no free air or free fluid. Patient's had a hysterectomy. IMPRESSION: 1. Mild diverticulitis, no abscess or free air noted. 2. Density in the gallbladder from gallstones or sludge. Electronically signed by: Aj Monreal MD (07/04/2018 9:46 AM) [facility] DICTATED and SIGNED BY: AJ MONREAL MD DATE: 07/04/18 0946 Course & Med Decision Making Course & Med Decision Making Pertinent Labs and Imaging studies reviewed. (See chart for details) Evaluation of patient in ER showed 57-year-old female patient with complaining of left lower quadrant pain and problem with urination since yesterday. Patient did not have pain at arrival to ER but later on complaining of severe pain and treated with fentanyl and Toradol and felt better. Patient was able to drink after IV fluid. Labs was unremarkable except for mild leukocytosis and hypokalemia. CT abdomen and pelvis showed mild diverticulitis and cholelithiasis without right upper quadrant tenderness or guarding. Patient was informed about test results needs to follow up with liquid diet and return if not getting better. Dragon Disclaimer Dragon Disclaimer This electronic medical record was generated, in whole or in part, using a voice recognition dictation system. Departure Departure Impression: Primary Impression: Acute diverticulitis Additional Impressions: Cholelithiasis Hypokalemia Left lower quadrant pain Nausea Disposition: 01 HOME, SELF-CARE (@1025) Condition: IMPROVED Referrals: AILEEN MARQUES MD (PCP) Patient Instructions: Cholelithiasis, Diverticulitis, Hypokalemia Additional Instructions: Drink plenty of liquids Follow-up with your primary care physician in 3-5 days Return to ER if not getting better Take liquid diet for the next 2 days Avoid of eating greasy food Scripts Oxycodone/Apap 5-325 (PERCOCET 5-325 MG TABLET ) 1 Each Tablet 1 EACH PO PRN TID PRN for PAIN, #12 TAB pain Prov: ANNIE HAND MD 07/04/18 Metronidazole (FLAGYL) 500 Mg Tablet 500 MG PO TID, #21 TAB Prov: ANNIE HAND MD 07/04/18 Ondansetron Hcl (ZOFRAN) 4 Mg Tablet 1 TAB PO PRN Q6-8HRS for nausea, #12 TAB Prov: ANINE HAND MD 07/04/18 Ciprofloxacin Hcl (CIPRO) 250 Mg Tablet 1 TAB PO BID for infection, #14 TAB Prov: ANNIE HAND MD 07/04/18 Problem Qualifiers Additional Impressions: Cholelithiasis Cholelithiasis location: gallbladder Cholecystitis presence: without cholecystitis Biliary obstruction: without biliary obstruction Qualified Codes: K80.20 - Calculus of gallbladder without cholecystitis without obstruction ANNIE HAND MD Jul 04, 2018 09:07
[2018-07-04 09:18] LABS: BASO % 0 % (0-3); EOS # 0.1 x10^3/uL (0.0-0.7); EOS % 1 % (0-3); HEMOGLOBIN 12.3 g/dL (12.0-15.5); LYMPH % 36 % (24-48); MEAN CORPUSCULAR HEMOGLOBIN 30 pg (25-35); MEAN CORPUSCULAR HGB CONC 33 g/dL (31-37); MEAN CORPUSCULAR VOLUME 92 fL (79-100); MONO # 0.5 x10^3/uL (0.0-1.1); MONO % 5 % (0-9); NEUT # 6.4 x10^3uL (1.8-7.7); NEUT % 58 % (31-73); PLATELET COUNT 422 x10^3/uL (140-400); RED BLOOD COUNT 4.04 x10^6/uL (3.50-5.40); RED CELL DISTRIBUTION WIDTH 14.3 % (11.5-14.5); WHITE BLOOD COUNT 11.1 x10^3/uL (4.0-11.0)
[2018-07-04 09:26] LABS: CALCIUM 9.6 mg/dL (8.5-10.1); CREATININE 0.8 mg/dL (0.6-1.0); GFR 89.8; POTASSIUM 3.4 mmol/L (3.5-5.1)
[2018-07-04] MEDS ORDERED: fentaNYL PF VIAL 100 MCG/2 ML VIAL IV ONE (09:30)
[2018-07-04] MEDS ORDERED: ONDANSETRON PF 4 MG/2 ML VIAL. IV ONE (09:30)
[2018-07-04 09:32] LABS: ALBUMIN 3.9 g/dL (3.4-5.0); ALBUMIN/GLOBULIN RATIO 0.9 (1.0-1.7); TOTAL BILIRUBIN 0.4 mg/dL (0.2-1.0); TOTAL PROTEIN 8.2 g/dL (6.4-8.2)
--- NOTE | 2018-07-04 09:49 | RAD ---
CT abdomen and pelvis without contrast. HISTORY: Left lower quadrant pain, nausea CT scan of the abdomen and pelvis was done without contrast. Lung bases are free of infiltrates. There is no effusion. There is a spinal stimulator. A liver lesion is not identified. There is density in the gallbladder from sludge or gallstones. Spleen and adrenal glands are normal. Pancreas is unremarkable. There is no mass or hydronephrosis in the kidneys. There is no adenopathy or ascites or free air. There is no bowel obstruction. Appendix is normal. There is diverticulosis of the colon. There is minimal pericolonic inflammation at the junction of the descending colon and sigmoid colon in lateral pelvis on the left suggesting a mild diverticulitis. There is no free air or free fluid. Patient's had a hysterectomy. IMPRESSION: 1. Mild diverticulitis, no abscess or free air noted. 2. Density in the gallbladder from gallstones or sludge. Electronically signed by: Aj Monreal MD (07/04/2018 9:46 AM) [facility]
[2018-07-04 10:04] LABS: BILIRUBIN,URINE NEGATIVE (NEG); CLARITY,URINE CLEAR; COLOR,URINE YELLOW; NITRITE,URINE NEGATIVE (NEG); PH,URINE 6.5; PROTEIN,URINE NEGATIVE (NEG-TRACE); UROBILINOGEN,URINE 0.2 mg/dL (0.2 mg/dL)
[2018-07-04 10:11] LABS: SQUAMOUS EPITHELIAL CELL,UR FEW /LPF
[2018-07-04 10:13] LABS: BACTERIA,URINE FEW /HPF (0-FEW); RBC,URINE OCC /HPF (0-2); WBC,URINE OCC /HPF (0-4)
[2018-07-04] MEDS ORDERED: ONDA4TAB7 PO (10:29)
[2018-07-04] MEDS ORDERED: METR500T PO (10:29)
[2018-07-04] MEDS ORDERED: CIPR250T30 PO (10:29)
[2018-07-04] MEDS ORDERED: OXYC1TAB15 PO (10:29)
[2018-07-04 10:30] VITALS: BP 129/81
[2018-07-04] MEDS ORDERED: POTASSIUM CHLORIDE 20 MEQ TABLET.ER. PO ONE (10:30)
[2018-07-04] MEDS ORDERED: KETOROLAC 30 MG/ML VIAL. IV ONE (10:30)
[2018-08-12] MEDS ORDERED: OXYC1TAB15 PO (11:54)
[2018-08-12] MEDS ORDERED: DOCU100T11 PO (11:55)
== END 2018-07-04 10:45 | disposition home or self-care (01) ==
LOC: ER 08:23
DX: K57.92 Diverticulitis of intestine, part unspecified, without perforation or abscess without bleeding (principal); K80.20 Calculus of gallbladder without cholecystitis without obstruction; E87.6 Hypokalemia; E78.00 Pure hypercholesterolemia, unspecified; G89.29 Other chronic pain; I10 Essential (primary) hypertension; E11.9 Type 2 diabetes mellitus without complications; Z90.710 Acquired absence of both cervix and uterus; Z88.5 Allergy status to narcotic agent; Z88.8 Allergy status to other drugs, medicaments and biological substances
CPT/HCPCS: 36415; 74176; 80053; 81001; 83690; 85025; 96374; 96375; 99285; J1885; J2405; J3010; J7030

== ENCOUNTER 2018-07-10 16:30 | Emergency (ER) | payer OTHER ==
[~2018-07-10] VITALS: Ht 165.1 cm; Wt 73.9 kg
[~2018-07-10 16:30] MED LIST changes: +CIPR250T30 PO; +METR500T PO; +ONDA4TAB7 PO
[2018-07-10 16:54] LABS: BILIRUBIN,URINE NEGATIVE (NEG); CLARITY,URINE CLEAR; COLOR,URINE YELLOW; NITRITE,URINE NEGATIVE (NEG); PROTEIN,URINE NEGATIVE (NEG-TRACE); UROBILINOGEN,URINE 0.2 mg/dL (0.2 mg/dL)
[2018-07-10 17:04] LABS: BACTERIA,URINE 0 /HPF (0-FEW); RBC,URINE OCC /HPF (0-2); WBC,URINE OCC /HPF (0-4)
[2018-07-10 17:05] LABS: SQUAMOUS EPITHELIAL CELL,UR FEW /LPF
[2018-07-10 17:25] LABS: BASO # 0.1 x10^3/uL (0.0-0.2); BASO % 1 % (0-3); EOS # 0.2 x10^3/uL (0.0-0.7); EOS % 2 % (0-3); HEMATOCRIT 35.8 % (36.0-47.0); HEMOGLOBIN 12.1 g/dL (12.0-15.5); LYMPH # 3.7 x10^3/uL (1.0-4.8); LYMPH % 37 % (24-48); MEAN CORPUSCULAR HEMOGLOBIN 31 pg (25-35); MEAN CORPUSCULAR HGB CONC 34 g/dL (31-37); MEAN CORPUSCULAR VOLUME 91 fL (79-100); MONO # 0.5 x10^3/uL (0.0-1.1); MONO % 5 % (0-9); NEUT # 5.7 x10^3uL (1.8-7.7); NEUT % 56 % (31-73); PLATELET COUNT 415 x10^3/uL (140-400); RED BLOOD COUNT 3.92 x10^6/uL (3.50-5.40); RED CELL DISTRIBUTION WIDTH 14.7 % (11.5-14.5); WHITE BLOOD COUNT 10.1 x10^3/uL (4.0-11.0)
[2018-07-10 17:33] LABS: CREATININE 1.1 mg/dL (0.6-1.0); GFR 62.2; POTASSIUM 3.6 mmol/L (3.5-5.1)
[2018-07-10 17:39] LABS: ALBUMIN 3.8 g/dL (3.4-5.0); DIRECT BILIRUBIN 0.1 mg/dL (0.0-0.2); TOTAL BILIRUBIN 0.2 mg/dL (0.2-1.0); TOTAL PROTEIN 7.6 g/dL (6.4-8.2)
--- NOTE | 2018-07-10 17:47 | PHYS DOC ---
Past Medical History Past Medical History: Diabetes-Type II, Diverticulitis, High Cholesterol, Hypertension Additional Past Medical Histor: chronic back pain, sarcoidosis, pilonidal cyst Past Surgical History: Hysterectomy Additional Past Surgical Histo: back surgery- spinal cord stimulator, lumpectomy, cyst Alcohol Use: Occasionally Drug Use: None Adult General Chief Complaint Chief Complaint: ABDOMINAL PAIN HPI HPI 57-year-old female presenting the emergency department today with generalized abdominal pain about 10 AM this morning got worse. Patient's pain started about a week ago. Sharp shooting pain that radiates to the back and is without alleviating factors. Patient was diagnosed recently on 413 with diverticulitis with a small gallstone. She reports worsening pain. Past medical history history of diabetes mellitus hyperlipidemia sarcoidosis hypertension osteoarthritis diverticulosis GERD and spinal stenosis Surgical history: Hysterectomy multiple back surgeries removal of breast lump, lung biopsy left shoulder surgery 2 and a pilonidal cyst excision and removal. Social history former smoker, drinks occasionally, denies IV drug use. Lives alone. Patient's PCP is Dr. hussein. Review of systems is negative for nausea vomiting fevers chills chest pain shortness of breath headache or neck stiffness. All other review of systems is negative. ED course: 57-year-old female presenting to the emergency department today with abdominal pain. On arrival the patient is afebrile with a normal heart rate. Abdomen is tender in the left lower quadrant about rebound tenderness or guarding. Blood work ordered along with CT abdomen pelvis. CBC unremarkable. Chemistry panel shows elevated glucose. Lipase within normal limits. Urinalysis is negative for infection. Patient is pending a CT here diabetic on an EKG and a troponin at this time to expand the differential diagnosis. Patient will be signed out at 6 PM to oncoming team with plans to follow-up on imaging EKG and troponin and reexamination. Allergies Allergies Allergies Coded Allergies Type Severity Reaction Last Updated Verified hydrocodone Adverse Reaction Intermediate headache 11/04/16 Yes morphine Adverse Reaction Intermediate headache 11/04/16 Yes propoxyphene Adverse Reaction Intermediate HEADACHE 11/04/16 Yes Physical Exam Physical Exam Constitutional: Well developed, well nourished, no acute distress, non-toxic appearance. [] HENT: Normocephalic, atraumatic, bilateral external ears normal, oropharynx moist, no oral exudates, nose normal. [] Eyes: PERRLA, EOMI, conjunctiva normal, no discharge. [] Neck: Normal range of motion, no tenderness, supple, no stridor. [] Cardiovascular:Heart rate regular rhythm, no murmur [] Lungs & Thorax: Bilateral breath sounds clear to auscultation [] Abdomen: Bowel sounds normal, soft, llq tenderness present, no masses, no pulsatile masses. [] Skin: Warm, dry, no erythema, no rash. [] Back: No tenderness, no CVA tenderness. [] Extremities: No tenderness, no cyanosis, no clubbing, ROM intact, no edema. [] Neurologic: Alert and oriented X 3, normal motor function, normal sensory function, no focal deficits noted. [] Psychologic: Affect normal, judgement normal, mood normal. [] Current Patient Data Vital Signs Vital Signs Date Time Temp Pulse Resp B/P (MAP) Pulse Ox O2 Delivery O2 Flow Rate FiO2 07/10/18 16:40 97.7 68 16 153/87 (109) 99 Room Air 97.7 Lab Values Laboratory Tests Test 07/10/18 16:39 07/10/18 17:15 Urine Collection Type Unknown Urine Color Yellow Urine Clarity Clear Urine pH 7.0 Urine Specific [place] 1.010 Urine Protein Negative mg/dL (NEG-TRACE) Urine Glucose (UA) 100 mg/dL (NEG) Urine Ketones (Stick) Negative mg/dL (NEG) Urine Blood Negative (NEG) Urine Nitrite Negative (NEG) Urine Bilirubin Negative (NEG) Urine Urobilinogen Dipstick 0.2 mg/dL (0.2 mg/dL) Urine Leukocyte Esterase Negative (NEG) Urine RBC Occ /HPF (0-2) Urine WBC Occ /HPF (0-4) Urine Squamous Epithelial Cells Few /LPF Urine Renal Epithelial Cells Few /LPF Urine Bacteria 0 /HPF (0-FEW) Urine Mucus Slight /LPF White Blood Count 10.1 x10^3/uL (4.0-11.0) Red Blood Count 3.92 x10^6/uL (3.50-5.40) Hemoglobin 12.1 g/dL (12.0-15.5) Hematocrit 35.8 % (36.0-47.0) L Mean Corpuscular Volume 91 fL (79-100) Mean Corpuscular Hemoglobin 31 pg (25-35) Mean Corpuscular Hemoglobin Concent 34 g/dL (31-37) Red Cell Distribution Width 14.7 % (11.5-14.5) H Platelet Count 415 x10^3/uL (140-400) H Neutrophils (%) (Auto) 56 % (31-73) Lymphocytes (%) (Auto) 37 % (24-48) Monocytes (%) (Auto) 5 % (0-9) Eosinophils (%) (Auto) 2 % (0-3) Basophils (%) (Auto) 1 % (0-3) Neutrophils # (Auto) 5.7 x10^3uL (1.8-7.7) Lymphocytes # (Auto) 3.7 x10^3/uL (1.0-4.8) Monocytes # (Auto) 0.5 x10^3/uL (0.0-1.1) Eosinophils # (Auto) 0.2 x10^3/uL (0.0-0.7) Basophils # (Auto) 0.1 x10^3/uL (0.0-0.2) Sodium Level 138 mmol/L (136-145) Potassium Level 3.6 mmol/L (3.5-5.1) Chloride Level 101 mmol/L (98-107) Carbon Dioxide Level 27 mmol/L (21-32) Anion Gap 10 (6-14) Blood Urea Nitrogen 11 mg/dL (7-20) Creatinine 1.1 mg/dL (0.6-1.0) H Estimated GFR (Cockcroft-Gault) 62.2 Glucose Level 245 mg/dL (70-99) H Calcium Level 10.0 mg/dL (8.5-10.1) Total Bilirubin 0.2 mg/dL (0.2-1.0) Direct Bilirubin 0.1 mg/dL (0.0-0.2) Aspartate Amino Transferase (AST) 59 U/L (15-37) H Alanine Aminotransferase (ALT) 68 U/L (14-59) H Alkaline Phosphatase 79 U/L (46-116) Total Protein 7.6 g/dL (6.4-8.2) Albumin 3.8 g/dL (3.4-5.0) Lipase 124 U/L (73-393) Laboratory Tests 07/10/18 17:15 Laboratory Tests 07/10/18 17:15 EKG EKG [] Radiology/Procedures Radiology/Procedures [] Course & Med Decision Making Course & Med Decision Making Pertinent Labs and Imaging studies reviewed. (See chart for details) [] Dragon Disclaimer Dragon Disclaimer This electronic medical record was generated, in whole or in part, using a voice recognition dictation system. Departure Departure Referrals: AILEEN MARQUES MD (PCP) HENRI MUSTAFA MD Jul 10, 2018 17:47
[2018-07-10] MEDS ORDERED: IOHEXOL 300 MG/ML 100ML VIAL. IV ONE (18:00)
[2018-07-10] MEDS ORDERED: CONTRAST GIVEN. MC PRN (18:00)
--- NOTE | 2018-07-10 19:20 | RAD ---
CT abdomen and pelvis with contrast: Reason for examination: Abdominal pain. Comparison is made to previous study dated 07/04/2018. Helical images were obtained through the abdomen and pelvis with intravenous administration of 75 cc Omnipaque 300. Reconstruction was performed in sagittal and coronal planes. Exposure: One or more of the following individualized dose reduction techniques were utilized for this examination: 1. Automated exposure control 2. Adjustment of the mA and/or kV according to patient size 3. Use of iterative reconstruction technique. The lung bases are clear. The heart size is normal with no pericardial effusion. No abnormality seen at the liver, spleen, adrenal glands or pancreas. The gallbladder contains some density which may reflect sludge and/or small stones. The abdominal aorta and inferior vena cava show no acute abnormalities. No abnormality seen at the appendix. There is a small hiatal hernia. No other abnormality seen at the stomach, duodenum or small intestinal tract. There is diverticulosis in the sigmoid colon but no definite changes of diverticulitis are seen. The kidneys show no renal masses, renal calculi, hydronephrosis or obstructive uropathy. No abnormality seen at the bladder or vaginal cuff. No acute bony abnormalities are seen. TENS unit is seen in the lower thoracic spine. IMPRESSION: Small hiatal hernia. Sludge and/or small stones in the gallbladder. Diverticulosis in the sigmoid colon but no definite changes of diverticulitis evident. Electronically signed by: Laura Murray MD (07/10/2018 7:17 PM) [facility]
[2018-07-10] MEDS ORDERED: HYOS0.1265 SL (20:16)
[2018-07-10] MEDS ORDERED: FAMO-63 PO (20:16)
[2018-07-10 20:23] VITALS: BP 144/67
--- NOTE | 2018-07-11 14:56 | EKG ---
[facility] [address] [place] [address] Test Date: 2018-07-10 Test Time: 18:03:08 Pat Name: EFRAIN DEAN Department: Room: Gender: F Application Counselor: : 1960 Requested By: HENRI MUSTAFA Order Number: [id number] Reading MD: Jeremie Summers MD Measurements Intervals [place] Rate: 54 P: 64 NM: 142 QRS: -14 QRSD: 82 T: 36 QT: 450 QTc: 429 Interpretive Statements SINUS RHYTHM Electronically Signed On 07-14-2018 12:14:45 CDT by Jeremie Summers MD
[2018-08-12] MEDS ORDERED: OXYC1TAB15 PO (11:54)
[2018-08-12] MEDS ORDERED: DOCU100T11 PO (11:55)
== END 2018-07-10 20:45 | disposition home or self-care (01) ==
LOC: ER 16:30
DX: K80.20 Calculus of gallbladder without cholecystitis without obstruction (principal); K44.9 Diaphragmatic hernia without obstruction or gangrene; E11.9 Type 2 diabetes mellitus without complications; E78.00 Pure hypercholesterolemia, unspecified; I10 Essential (primary) hypertension; G89.29 Other chronic pain; M54.89 Other dorsalgia; K21.9 Gastro-esophageal reflux disease without esophagitis; M19.90 Unspecified osteoarthritis, unspecified site; E78.5 Hyperlipidemia, unspecified; Z87.19 Personal history of other diseases of the digestive system; Z90.710 Acquired absence of both cervix and uterus; Z98.890 Other specified postprocedural states; Z88.5 Allergy status to narcotic agent; Z88.8 Allergy status to other drugs, medicaments and biological substances
CPT/HCPCS: 36415; 74177; 80048; 80076; 81001; 83690; 84484; 85025; 93005; 99285; Q9967

== ENCOUNTER → 2018-07-20 | Outpatient (CLI) | payer OTHER ==
[2018-07-10 20:23] VITALS: BP 144/67
[~2018-07-20] MED LIST changes: +AMOX1TAB61 PO; +AMOX875T PO; +DOCU100T11 PO; +FAMO-63 PO; +HYDR-2163 PO; +HYOS0.1265 SL; +ICOS1CAP PO; +SINCALIDE 1.53 MCG in IV NORMAL SALINE 50ML 30 ML IV ONE
--- NOTE | 2018-07-20 12:15 | RAD ---
HEPATOBILIARY SCAN WITH EJECTION FRACTION 07/20/2018 12:11 PM History: Abd pain radiating to the back, diarrhea nausea 5.5mci 99mTc Choletec 1.5mCg Kinevac for EF Procedure: Serial static images are obtained of the liver and biliary system in the frontal projection following IV administration of 5.5 mCi of Technetium 99m Choletec. After filling of the gallbladder, likely mcg of sincalide were infused over 30 minutes and dynamic imaging continued over this period. The gallbladder ejection fraction was calculated. Findings: There is prompt hepatic clearance of tracer from the blood pool. There is homogeneous distribution throughout the liver. Gallbladder fills an unremarkable fashion. The gallbladder ejection fraction measures 23% (normal gallbladder EF is 35% or greater). IMPRESSION: 1. The cystic duct and common bile duct are patent. Negative for acute cholecystitis. 2. The gallbladder ejection fraction is abnormally low measuring 23 %. Findings may indicate chronic cholecystitis or biliary dyskinesia. Electronically signed by: Zane Hansen MD (07/20/2018 12:12 PM) [id number]
== END | disposition home or self-care (01) ==
LOC: NM 08:46
PROVIDERS: ATTEND Family Medicine
DX: K80.20 Calculus of gallbladder without cholecystitis without obstruction (principal)
CPT/HCPCS: 78227; A9537; J2805

== ENCOUNTER 2018-08-06 23:42 | Emergency (ER) | payer OTHER ==
[~2018-08-06] VITALS: Ht 165.1 cm; Wt 72.6 kg
[~2018-08-06 23:42] MED LIST changes: -AMOX1TAB61 PO; -AMOX875T PO; -DOCU100T11 PO; -HYDR-2163 PO; -ICOS1CAP PO; -SINCALIDE 1.53 MCG in IV NORMAL SALINE 50ML 30 ML IV ONE
[2018-08-07 00:07] VITALS: BP 114/71
[2018-08-07] MEDS ORDERED: ONDANSETRON PF 4 MG/2 ML VIAL. IV ONE (00:30)
[2018-08-07] MEDS ORDERED: fentaNYL PF VIAL 100 MCG/2 ML VIAL IV ONE ×2 (00:30→02:45)
[2018-08-07 00:32] LABS: BILIRUBIN,URINE NEGATIVE (NEG); CLARITY,URINE CLEAR; COLOR,URINE YELLOW; NITRITE,URINE NEGATIVE (NEG); PROTEIN,URINE NEGATIVE (NEG-TRACE); UROBILINOGEN,URINE 0.2 mg/dL (0.2 mg/dL)
[2018-08-07 01:02] LABS: BACTERIA,URINE 0 /HPF (0-FEW); RBC,URINE 0 /HPF (0-2); SQUAMOUS EPITHELIAL CELL,UR FEW /LPF; WBC,URINE OCC /HPF (0-4)
[2018-08-07 01:27] LABS: BASO % 0 % (0-3); EOS # 0.2 x10^3/uL (0.0-0.7); EOS % 2 % (0-3); HEMOGLOBIN 12.4 g/dL (12.0-15.5); LYMPH % 45 % (24-48); MEAN CORPUSCULAR HEMOGLOBIN 30 pg (25-35); MEAN CORPUSCULAR HGB CONC 33 g/dL (31-37); MEAN CORPUSCULAR VOLUME 93 fL (79-100); MONO # 0.6 x10^3/uL (0.0-1.1); MONO % 5 % (0-9); NEUT # 5.3 x10^3uL (1.8-7.7); NEUT % 48 % (31-73); PLATELET COUNT 396 x10^3/uL (140-400); RED BLOOD COUNT 4.08 x10^6/uL (3.50-5.40); RED CELL DISTRIBUTION WIDTH 14.1 % (11.5-14.5); WHITE BLOOD COUNT 11.2 x10^3/uL (4.0-11.0)
[2018-08-07 01:37] LABS: CALCIUM 10.2 mg/dL (8.5-10.1); CREATININE 0.8 mg/dL (0.6-1.0); GFR 89.8; POTASSIUM 3.4 mmol/L (3.5-5.1)
[2018-08-07 01:43] LABS: ALBUMIN 4.3 g/dL (3.4-5.0); TOTAL BILIRUBIN 0.3 mg/dL (0.2-1.0); TOTAL PROTEIN 8.7 g/dL (6.4-8.2)
[2018-08-07] MEDS ORDERED: HYDR-2163 PO (02:04)
[2018-08-07] MEDS ORDERED: AMOX1TAB61 PO (02:04)
[2018-08-07] MEDS ORDERED: AMOXICILLIN/K CLAV 875/125MG TABLET. PO ONE (02:15)
--- NOTE | 2018-08-07 04:45 | PHYS DOC ---
Past Medical History Past Medical History: Gallstones, Hypertension Additional Past Medical Histor: chronic back pain, sarcoidosis, pilonidal cyst Past Surgical History: Other Additional Past Surgical Histo: SPINALIMPLANTS Alcohol Use: None Drug Use: None Adult General Chief Complaint Chief Complaint: ABDOMINAL PAIN HPI HPI Patient is a 57 year old spitting female with history of biliary dyskinesia currently scheduled to have cholecystectomy in [address] Colvin who presents with epigastric pain, radiating to right shoulder blade. Reports nausea without vomiting. Pain is similar to prior symptoms with biliary colic. No fevers chills, vomiting, hematemesis, bloody stools dark tarry stools. No other acute symptoms or complaints. Patient has nausea medication at home and is out of pain medication[] Review of Systems Review of Systems Review of symptoms as per history of present illness. All other review symptoms are negative. All other systems were reviewed and found to be within normal limits, except as documented in this note. Current Medications Current Medications Current Medications Medications (Trade) Dose Ordered Sig/Misty Start Time Stop Time Status Last Admin Dose Admin Amoxicillin/ Clavulanate Potassium (Augmentin 875/ 125mg) 1 tab 1X ONCE 08/07/18 02:15 08/07/18 02:16 DC 08/07/18 02:25 1 TAB Fentanyl Citrate (Fentanyl 2ml Vial) 50 mcg 1X ONCE 08/07/18 02:45 08/07/18 02:46 DC 08/07/18 02:41 50 MCG Ondansetron HCl (Zofran) 4 mg 1X ONCE 08/07/18 00:30 08/07/18 00:31 DC 08/07/18 01:09 4 MG Allergies Allergies Allergies Coded Allergies Type Severity Reaction Last Updated Verified hydrocodone Adverse Reaction Intermediate headache 11/04/16 Yes morphine Adverse Reaction Intermediate headache 11/04/16 Yes propoxyphene Adverse Reaction Intermediate HEADACHE 11/04/16 Yes Physical Exam Physical Exam Constitutional: Well developed, well nourished, no acute distress, non-toxic appearance. [] HENT: Normocephalic, atraumatic, bilateral external ears normal, oropharynx moist, no oral exudates, nose normal. [] Eyes: PERRLA, EOMI, conjunctiva normal, no discharge. [] Neck: Normal range of motion, no tenderness. [] Cardiovascular:Heart rate regular rhythm, no murmur [] Lungs & Thorax: Bilateral breath sounds clear to auscultation [] Abdomen: Bowel sounds normal, soft, epigastric pain, tenderness. Positive [place] sign[] Skin: Warm, dry, no erythema, no rash. [] Back: No tenderness. [] Extremities: No tenderness, no edema. [] Neurologic: Alert and oriented X 3, normal motor function, normal sensory function, no focal deficits noted. [] Psychologic: Affect normal, judgement normal, mood normal. [] Current Patient Data Vital Signs Vital Signs Date Time Temp Pulse Resp B/P (MAP) Pulse Ox O2 Delivery O2 Flow Rate FiO2 08/07/18 02:41 22 98 08/07/18 01:08 Room Air 08/07/18 00:07 97.8 67 114/71 (85) 97.8 Lab Values Laboratory Tests Test 08/07/18 00:01 White Blood Count 11.2 x10^3/uL (4.0-11.0) H Red Blood Count 4.08 x10^6/uL (3.50-5.40) Hemoglobin 12.4 g/dL (12.0-15.5) Hematocrit 38.0 % (36.0-47.0) Mean Corpuscular Volume 93 fL (79-100) Mean Corpuscular Hemoglobin 30 pg (25-35) Mean Corpuscular Hemoglobin Concent 33 g/dL (31-37) Red Cell Distribution Width 14.1 % (11.5-14.5) Platelet Count 396 x10^3/uL (140-400) Neutrophils (%) (Auto) 48 % (31-73) Lymphocytes (%) (Auto) 45 % (24-48) Monocytes (%) (Auto) 5 % (0-9) Eosinophils (%) (Auto) 2 % (0-3) Basophils (%) (Auto) 0 % (0-3) Neutrophils # (Auto) 5.3 x10^3uL (1.8-7.7) Lymphocytes # (Auto) 5.0 x10^3/uL (1.0-4.8) H Monocytes # (Auto) 0.6 x10^3/uL (0.0-1.1) Eosinophils # (Auto) 0.2 x10^3/uL (0.0-0.7) Basophils # (Auto) 0.0 x10^3/uL (0.0-0.2) Urine Collection Type Unknown Urine Color Yellow Urine Clarity Clear Urine pH 7.0 Urine Specific [place] <=1.005 Urine Protein Negative mg/dL (NEG-TRACE) Urine Glucose (UA) Negative mg/dL (NEG) Urine Ketones (Stick) Negative mg/dL (NEG) Urine Blood Negative (NEG) Urine Nitrite Negative (NEG) Urine Bilirubin Negative (NEG) Urine Urobilinogen Dipstick 0.2 mg/dL (0.2 mg/dL) Urine Leukocyte Esterase Negative (NEG) Urine RBC 0 /HPF (0-2) Urine WBC Occ /HPF (0-4) Urine Squamous Epithelial Cells Few /LPF Urine Bacteria 0 /HPF (0-FEW) Sodium Level 141 mmol/L (136-145) Potassium Level 3.4 mmol/L (3.5-5.1) L Chloride Level 101 mmol/L (98-107) Carbon Dioxide Level 31 mmol/L (21-32) Anion Gap 9 (6-14) Blood Urea Nitrogen 12 mg/dL (7-20) Creatinine 0.8 mg/dL (0.6-1.0) Estimated GFR (Cockcroft-Gault) 89.8 BUN/Creatinine Ratio 15 (6-20) Glucose Level 115 mg/dL (70-99) H Calcium Level 10.2 mg/dL (8.5-10.1) H Total Bilirubin 0.3 mg/dL (0.2-1.0) Aspartate Amino Transferase (AST) 14 U/L (15-37) L Alanine Aminotransferase (ALT) 22 U/L (14-59) Alkaline Phosphatase 78 U/L (46-116) Total Protein 8.7 g/dL (6.4-8.2) H Albumin 4.3 g/dL (3.4-5.0) Albumin/Globulin Ratio 1.0 (1.0-1.7) Lipase 185 U/L (73-393) Laboratory Tests 08/07/18 00:01 Laboratory Tests 08/07/18 00:01 EKG EKG [] Radiology/Procedures Radiology/Procedures [] Course & Med Decision Making Course & Med Decision Making Pertinent Labs and Imaging studies reviewed. (See chart for details) [Pain addressed, suspect biliary dyskinesia versus mild cholecystis. Will place on brief course of abx and continue supportive care with follow-up with general surgeon ] Andrey Disclaimer Andrey Disclaimer This electronic medical record was generated, in whole or in part, using a voice recognition dictation system. Departure Departure Impression: Primary Impression: Cholelithiasis Additional Impressions: Epigastric pain Nausea Disposition: HOME, SELF-CARE Condition: GOOD Patient Instructions: Cholelithiasis, Gisu-ap-Chsk, Abdominal Pain, [id number]-[id number] Additional Instructions: Take pain medication and antibiotics as directed. Contact Dr. Colvin's office tomorrow morning and notify of ED visit in provide up-to-date of your condition. If you develop new or worsening symptoms, please return to the emergency department. Scripts Hydrocodone Bit/Acetaminophen (HYDROCODONE-APAP 5-300) 1 Each Tablet 1 TAB PO PRN Q6HRS PRN for PAIN, #10 TAB 0 Refills Prov: ALEXA RAJAN DO 08/07/18 Amoxicillin/Potassium Clav (AUGMENTIN 875-125 TABLET) 1 Each Tablet 1 TAB PO BID, #14 TAB Prov: ALEXA RAJAN DO 08/07/18 Problem Qualifiers ALEXA RAJAN DO August 07, 2018 04:45
--- NOTE | 2018-08-07 07:32 | EKG ---
[facility] [address] [place] [address] Test Date: 2018-08-07 Test Time: 01:27:21 Pat Name: EFRAIN DEAN Department: Room: Gender: F Gear Hobber: : 1960 Requested By: ALEXA RAJAN Order Number: [id number] Reading MD: Zeeshan Bardales Measurements Intervals [place] Rate: 54 P: 66 IA: 144 QRS: 4 QRSD: 88 T: 33 QT: 432 QTc: 411 Interpretive Statements SINUS RHYTHM NORMAL ECG Electronically Signed On 08-28-2018 12:25:52 CDT by Zeeshan Bardales
[2018-08-07] MEDS ORDERED: AMOX875T PO (10:53)
[2018-08-07] MEDS ORDERED: ICOS1CAP PO (10:53)
[2018-08-07] MEDS ORDERED: LORA10TA3 PO (10:53)
[2018-08-12] MEDS ORDERED: OXYC1TAB15 PO (11:54)
[2018-08-12] MEDS ORDERED: DOCU100T11 PO (11:55)
== END 2018-08-07 03:02 | disposition home or self-care (01) ==
LOC: ER 23:42
DX: K80.20 Calculus of gallbladder without cholecystitis without obstruction (principal); M25.511 Pain in right shoulder; I10 Essential (primary) hypertension; G89.29 Other chronic pain; Z90.49 Acquired absence of other specified parts of digestive tract; Z88.5 Allergy status to narcotic agent; Z88.8 Allergy status to other drugs, medicaments and biological substances
CPT/HCPCS: 36415; 80053; 81001; 83690; 85025; 93005; 96374; 96375; 96376; 99285; J2405; J3010

== ENCOUNTER → 2018-08-12 | Day surgery (SDC) | payer OTHER ==
[~2018-08-12] VITALS: Ht 167.6 cm; Wt 75.7 kg
[~2018-08-12] MED LIST changes: +AMOX1TAB61 PO; +AMOX875T PO; +BUPIVAC MPF-EPI 0.5%-1:200000 30 ML VIAL. ONE; +DEXAMETHASONE SOD PHOS 4 MG/ML VIAL ONE; +DOCU100T11 PO; +GLUCAGON,HUMAN RECOMBINANT 1 MG/ML VIAL. ONE; +GLYCOPYRROLATE 1 MG/5 ML VIAL. ONE; +HYDR-2163 PO; +HYDROmorphone 2 MG/ML VIAL ONE; +ICOS1CAP PO; +IOHEXOL 300 MG/ML 50 ML VIAL. ONE; +IPRATRPIUM/ALBUTEROL 0.5/2.5MG 3 ML NEBU. NEB ONE; +IPRATRPIUM/ALBUTEROL 0.5/2.5MG 3 ML NEBU. ONE; +KETAMINE HCL IN NACL, ISO-OSM 50 MG/5 ML SYRINGE ONE; +KETOROLAC 30 MG/ML INJ FOR OR. INJ ONE; +LIDOCAINE 1% PF 2 ML VIAL. ID PRN; +LIDOCAINE 2% PF 5 ML VIAL. ONE; +MIDAZOLAM HCL/PF 2 MG/2 ML VIAL. ONE; +NEOSTIGMINE METHYLSULFATE 5 MG/5 ML SYRINGE. ONE; +ONDANSETRON PF 4 MG/2 ML VIAL. IV PRN; +ONDANSETRON PF 4 MG/2 ML VIAL. ONE; +PROCHLORPERAZINE 10 MG/2 ML VIAL. IV PRN; +PROCHLORPERAZINE 10 MG/2 ML VIAL. ONE; +PROPOFOL 0 ML IV ONE; +PROPOFOL 20 ML IV ONE; +ROCURONIUM 50 MG/5 ML VIAL. ONE; +SEVOFLURANE 31 TO 60 MINUTES. IH ONE; +SURGICEL HEMOSTAT 4X8 EACH. ONE; +ceFAZolin 2GM PREMIX 2 GM/50 ML BAG IV ONE; +ePHEDrine PF IN SALINE 50 MG/10 ML SYRINGE. IV ONE; +fentaNYL PF VIAL 100 MCG/2 ML VIAL IV PRN; +fentaNYL PF VIAL 100 MCG/2 ML VIAL ONE; +oxyCODONE/APAP 5/325 1 TAB TABLET PO ONE
[2018-08-12] MEDS: IV RINGERS,LACTATED 1000ML 1,000 ML IV SCH ×2 (07:00→08:10)
--- NOTE | 2018-08-12 10:46 | RAD ---
CHOLANGIOGRAM INTRAOPERATIVE Clinical Indication: Cholecystectomy. Comparison: CT abdomen and pelvis with contrast July 10. Findings: Total fluoroscopy time 0.12 minutes. 2 fluoroscopic spot images. Cholecystectomy clips. Injection of contrast into cystic duct remnant outlines the biliary tree which is normal caliber. No filling defect in the common bile duct is identified. There is mild spillage into the duodenum. No extravasation of contrast is seen. Dorsal column stimulator lead incidentally noted. IMPRESSION: No evidence of choledocholithiasis. Electronically signed by: Charles Dewitt MD (08/12/2018 10:43 AM) [id number]
--- NOTE | 2018-08-12 10:54 | PDOC ---
BRIEF OPERATIVE NOTE Date: August 12, 2018 Pre-Op Diagnosis symptomatic cholelithiasis Post-Op Diagnosis same Procedure Performed l/s cholecystectomy with cholangiograms Surgeon Vinicius Ceramics Teacher Angie SIMMONSA Anesthesia Type: General Blood Loss 10cc IV Fluid 500cc Specimens Obtained GB Findings supple GB, normal grams Complications none Operative Note Wk # [id number] KILLIAN FORTUNE MD August 12, 2018 10:54
[2018-08-12] MEDS: fentaNYL PF VIAL 100 MCG/2 ML VIAL IV PRN ×3 (11:11→12:10)
[2018-08-12] MEDS: HYDROmorphone 2 MG/ML VIAL IV PRN ×3 (11:13→11:42)
--- NOTE | 2018-08-12 11:17 | OP ---
DATE OF SURGERY: 08/12/2018 PREOPERATIVE DIAGNOSIS: Symptomatic cholelithiasis. POSTOPERATIVE DIAGNOSIS: Symptomatic cholelithiasis. PROCEDURE: Laparoscopic cholecystectomy with cholangiogram. SURGEON: Ramiro Fortune MD. BELLMAN CAPTAIN: JODIE Major. ANESTHESIA: General endotracheal. ESTIMATED BLOOD LOSS: 10 mL. INTRAVENOUS FLUIDS: 500 mL. INDICATIONS: The patient is a 57-year-old with postprandial epigastric and right upper quadrant pain. Ultrasound showed stones. She is brought for cholecystectomy. OPERATIVE FINDINGS: The liver was smooth and sharp. The gallbladder was supple. Cholangiograms were normal. Visual inspection of the remainder of the abdomen failed to reveal obvious abnormalities. OPERATIVE REPORT: The patient is brought to the operating suite, given a general endotracheal anesthetic and the abdomen prepped and draped in usual sterile fashion. An infraumbilical incision was infiltrated with local anesthetic, incised and a 5-mm Visiport used to safely gain access into the abdominal cavity, taking care to avoid injury to abdominal contents. Pneumoperitoneum established. Camera inserted. Inspection carried out with results as noted above. With the table in reverse Trendelenburg rolled to the left, the epigastric and midclavicular ports were placed under direct vision. The lateral port location was used for an "alligator" grasper. The gallbladder retracted superolaterally and the cystic duct and cystic artery were identified. The duct was clipped on the gallbladder side. Cholangiograms were made. These were normal. In light of this, the catheter was removed. The cystic duct was clipped x 3 and divided, taking care to avoid injury or compromise to the common duct. The cystic artery was clipped and divided and the gallbladder freed from the bed with cautery dissection and placed in an EndoCatch bag. Good hemostasis was found in the fossa and no evidence of a bile leak was seen. Table returned to level. Gallbladder delivered through the epigastric incision. Epigastric incision closed with interrupted 0 Vicryl suture. Intra-abdominal pressure decreased to 6 cm of water. No bleeding from the epigastric closure or the midclavicular port site after its removal. No bleeding seen from the alligator port site or from the cholangiogram catheter site. Abdomen decompressed. Cam removed, no bleeding seen. Skin incisions closed with subcuticular 4-0 Monocryl. Steri-Strips and sterile dressings applied. The patient awakened from her anesthetic and taken to the recovery room in satisfactory condition. RAMIRO FORTUNE MD DR: JAVID/bibi JOB#: [id number] / [id number]
[2018-08-12 12:45] VITALS: BP 124/60
--- NOTE | 2018-08-12 12:48 | DISCH ---
DISCHARGE INSTRUCTIONS Condition on Discharge Condition on Discharge: Stable Activity After Discharge Activity Instructions for Disc: Activity as tolerated Driving Instructions after Dis: Do not drive (2-3 days) Diet after Discharge Diet after Discharge: Diabetic No Calorie Level Wound Incision Care Wound/Incision Care: Ice to area for comfort, Change dressing Other wound/incision instructi: july showfriday Checks after Discharge Checks after discharge: Check blood press - daily, Check blood sugar, ac/hs KILLIAN FORTUNE MD August 12, 2018 12:48
--- NOTE | 2018-08-14 15:05 | PATHOLOGY ---
[facility] Accession Number: [id number] . 01 Material submitted: . gallbladder - GALLBLADDER . 01 Clinical history: . None provided . 02 Diagnosis: Gallbladder, laparoscopic cholecystectomy: - Cholelithiasis. - Chronic cholecystitis, mild. (M:[facility] 08/14/2018) P/08/14/2018 . 02 Comment: There is no evidence of malignancy. ([facility] 08/14/2018) . 02 Electronically signed: . Sanjeev Cheung MD, Pathologist NPI- [id number] . 01 Gross description: . The specimen is received in formalin, labeled "Priyanka Chou, gallbladder". Received is an intact gallbladder measuring 11.5 x 3.7 x 3.5 cm in greatest dimensions displaying a blue-leos serosal surface. Opening the specimen reveals a velvety, bile-stained mucosa with a gallbladder wall thickness of 0.1 cm. Calculi are present having a black, smooth appearance, and no masses or lesions are noted grossly. Ob/Gyn Physician sections, to include the proximal margin, are submitted in cassette A1. ([facility]; 08/13/2018) QAC/QAC . 02 Pathologist provided ICD-10: K80.10 . 02 CPT . 281740 Specimen Comment: A courtesy copy of this report has been sent to Specimen Comment: [phone], . Specimen Comment: Report sent to / DR MARQUES Performed at: 01 [facility] [address], [place] [id number] MD Tarik Leon MD Phone: [phone] Performed at: 02 [facility] [address] [place], [place] [id number] MD Sanjeev Cheung MD Phone: [phone]
== END | disposition home or self-care (01) ==
LOC: SURG 07:04
PROVIDERS: ATTEND Surgery
DX: K80.10 Calculus of gallbladder with chronic cholecystitis without obstruction (principal); E11.9 Type 2 diabetes mellitus without complications; E78.5 Hyperlipidemia, unspecified; I10 Essential (primary) hypertension; K57.30 Diverticulosis of large intestine without perforation or abscess without bleeding; K21.9 Gastro-esophageal reflux disease without esophagitis; K44.9 Diaphragmatic hernia without obstruction or gangrene; Z79.899 Other long term (current) drug therapy; Z87.891 Personal history of nicotine dependence; Z90.710 Acquired absence of both cervix and uterus; Z98.890 Other specified postprocedural states; Z72.89 Other problems related to lifestyle; Z88.6 Allergy status to analgesic agent; Z88.5 Allergy status to narcotic agent; Z88.8 Allergy status to other drugs, medicaments and biological substances; Z86.73 Personal history of transient ischemic attack (TIA), and cerebral infarction without residual deficits; Z87.01 Personal history of pneumonia (recurrent); Z79.84 Long term (current) use of oral hypoglycemic drugs
CPT/HCPCS: 47563; 74300; 82962; 88304; 94640; A7015; J0171; J0696; J1100; J1170; J1885; J2001; J2405; J2704; J2710; J3010; J3490; J7030; J7620; Q9967; J0780; J1610; J2250

== ENCOUNTER → 2018-12-10 | Outpatient (CLI) | payer OTHER ==
[2018-08-12 12:45] VITALS: BP 124/60
[~2018-12-10] MED LIST changes: -BUPIVAC MPF-EPI 0.5%-1:200000 30 ML VIAL. ONE; -DEXAMETHASONE SOD PHOS 4 MG/ML VIAL ONE; -GLIM4TAB2 PO; +GLIM4TAB4 PO; -GLUCAGON,HUMAN RECOMBINANT 1 MG/ML VIAL. ONE; -GLYCOPYRROLATE 1 MG/5 ML VIAL. ONE; -HYDROmorphone 2 MG/ML VIAL ONE; +IOHEXOL 300 MG/ML 100ML VIAL. IV ONE; -IOHEXOL 300 MG/ML 50 ML VIAL. ONE; -IPRATRPIUM/ALBUTEROL 0.5/2.5MG 3 ML NEBU. NEB ONE; -IPRATRPIUM/ALBUTEROL 0.5/2.5MG 3 ML NEBU. ONE; -KETAMINE HCL IN NACL, ISO-OSM 50 MG/5 ML SYRINGE ONE; -KETOROLAC 30 MG/ML INJ FOR OR. INJ ONE; -LIDOCAINE 1% PF 2 ML VIAL. ID PRN; -LIDOCAINE 2% PF 5 ML VIAL. ONE; -MIDAZOLAM HCL/PF 2 MG/2 ML VIAL. ONE; -NEOSTIGMINE METHYLSULFATE 5 MG/5 ML SYRINGE. ONE; -ONDANSETRON PF 4 MG/2 ML VIAL. IV PRN; -ONDANSETRON PF 4 MG/2 ML VIAL. ONE; -PROCHLORPERAZINE 10 MG/2 ML VIAL. IV PRN; -PROCHLORPERAZINE 10 MG/2 ML VIAL. ONE; -PROPOFOL 0 ML IV ONE; -PROPOFOL 20 ML IV ONE; -ROCURONIUM 50 MG/5 ML VIAL. ONE; -SEVOFLURANE 31 TO 60 MINUTES. IH ONE; -SURGICEL HEMOSTAT 4X8 EACH. ONE; -ceFAZolin 2GM PREMIX 2 GM/50 ML BAG IV ONE; -ePHEDrine PF IN SALINE 50 MG/10 ML SYRINGE. IV ONE; -fentaNYL PF VIAL 100 MCG/2 ML VIAL IV PRN; -fentaNYL PF VIAL 100 MCG/2 ML VIAL ONE; -oxyCODONE/APAP 5/325 1 TAB TABLET PO ONE
--- NOTE | 2018-12-10 17:33 | KCIC ---
EXAM: CT Chest with IV contrast CLINICAL HISTORY: Sarcoidosis. COMPARISON: CT chest 10/31/2016. TECHNIQUE: CT of the chest following the administration of intravenous contrast. Axial, coronal and sagittal reformatted images were generated. ---PQRS compliance statement - One or more of the following individualized dose reduction techniques were utilized for this study: 1. Automated exposure control 2. Adjustment of the mA and/or kV according to patient size 3. Use of iterative reconstruction technique--- FINDINGS: CHEST: Heart is not enlarged. No pericardial effusion. Coronary artery calcifications are seen. No pleural effusion or pneumothorax. No mediastinal or hilar lymphadenopathy. No axillary lymphadenopathy. Emphysematous changes are seen bilaterally. An 8 mm lung nodule seen in the left lower lobe, stable compared to a 10/31/2016. 5 mm lingular lung nodule is stable. Several the lung nodule seen on prior CT from 10/2016 are not seen on this examination. Linear opacities in the lingula likely scarring/atelectasis. Visualized Upper abdomen: Hepatic hypoattenuation may be seen with hepatic steatosis. Cholecystectomy clips are seen. Bones: Osseous structures are grossly stable. IMPRESSION: 1. An 8 mm lung nodule seen in the left lower lobe, stable compared to a 10/31/2016. 2. Hepatic hypoattenuation may be seen with hepatic steatosis. 3. No mediastinal or hilar lymphadenopathy. 4. Emphysematous changes are seen bilaterally. Electronically signed by: Stu Saul MD (12/10/2018 5:30 PM) [facility]
--- NOTE | 2018-12-10 20:13 | KCIC ---
Bilateral digital screening mammograms with 3-D tomosynthesis: Reason for examination: Routine screening. Comparison is made to previous studies dated back to 04/08/2014. Bilateral mammograms in CC and oblique projections were obtained with 2-D imaging and 3-D tomosynthesis imaging on a Siemens Inspiration unit and reviewed on the workstation. Interpretation was made with the benefit of CAD. The skin and nipples show no abnormalities. No abnormal axillary lymph nodes are seen. The breast parenchyma is extremely dense. (Breast density: Category D.) There are small nodular parenchymal densities seen bilaterally which appear to be stable. There are no new dominant masses, suspicious calcifications or architectural distortion. A few benign calcifications are again seen. Impression: No evidence of malignancy. Recommend routine screening. Your patient's mammogram demonstrates that she has dense breast tissue (breast density category C or D), which could hide abnormalities, and if she has other risk factors for breast cancer that have been identified, she might benefit from supplemental screening tests that may be suggested by you as her ordering physician. Dense breast tissue, in and of itself, is a relatively common condition. Therefore, this information is not provided to cause undue concern, but rather to raise your awareness and to promote discussion with your patient regarding the presence of other risk factors, in addition to dense breast tissue. Your patient's mammography results will be sent to her. BI-RAD Category 2: Benign. "Our facility is accredited by the [employer] Mammography Program." This patient's information has been entered into a reminder system for the patient to be notified with the results of her examination and a target date for the next mammogram. Electronically signed by: Laura Murray MD (12/10/2018 8:11 PM) [id number]
== END | disposition home or self-care (01) ==
LOC: KCIC CT 12:27
PROVIDERS: ATTEND Family Medicine
DX: Z12.31 Encounter for screening mammogram for malignant neoplasm of breast (principal); J43.9 Emphysema, unspecified; J98.4 Other disorders of lung; R91.1 Solitary pulmonary nodule; I10 Essential (primary) hypertension; E11.9 Type 2 diabetes mellitus without complications; F17.200 Nicotine dependence, unspecified, uncomplicated; N64.89 Other specified disorders of breast; Z90.49 Acquired absence of other specified parts of digestive tract; Z86.2 Personal history of diseases of the blood and blood-forming organs and certain disorders involving the immune mechanism
CPT/HCPCS: 71260; 77063; 77067; Q9967

== ENCOUNTER 2020-01-19 09:27 | Emergency (ER) | payer MEDICARE, OTHER ==
[~2020-01-19] VITALS: Ht 165.1 cm; Wt 74.0 kg
[~2020-01-19 09:27] MED LIST changes: +AMLO-186 PO; -AMLO5TAB10 PO; -GLIM4TAB4 PO; +GLIM4TAB8 PO; -HYDR-2163 PO; +HYDR-3068 PO; -IOHEXOL 300 MG/ML 100ML VIAL. IV ONE
--- NOTE | 2020-01-19 09:42 | PHYS DOC ---
Past Medical History Past Medical History: Gallstones, Hypertension Additional Past Medical Histor: chronic back pain, sarcoidosis, pilonidal cyst Past Surgical History: Other Additional Past Surgical Histo: SPINALIMPLANTS Smoking Status: Never Smoker Alcohol Use: None Drug Use: None General Adult EDM: Chief Complaint: CHEST PAIN HPI: HPI: Patient is a 59 year old female who presents with constant left scapular pain. The pain has been been going on for 1 week and started in the left shoulder is migrated to the left scapula. Patient states pain is worse with range of motion and deep breaths. Patient has some mild shortness of breath. Patient denies any chest pain, nausea, vomiting, cough or fever. Patient did have a runny nose intermittently over the last week. Pain is described as a pushing feeling and is moderate in intensity. Patient denies any current radiation of symptoms. Review of Systems: Review of Systems: Constitutional: Denies fever or chills. [] Eyes: Denies change in visual acuity. [] HENT: Denies nasal congestion or sore throat. [] Respiratory: Denies cough but has mild shortness of breath. [] Cardiovascular: Denies chest pain or edema. [] GI: Denies abdominal pain, nausea, vomiting, bloody stools or diarrhea. [] : Denies dysuria. [] Musculoskeletal: Complains of back pain Integument: Denies rash. [] Neurologic: Denies headache, focal weakness or sensory changes. [] Endocrine: Denies polyuria or polydipsia. [] Lymphatic: Denies swollen glands. [] Psychiatric: Denies depression or anxiety. [] Heart Score: HEART Score for Chest Pain: HEART Score for Chest Pain Response (Comments) Value History Slighlty/Non-Suspicious 0 ECG Nonspecific Repolarizatio 1 Age >45 - < 65 1 Risk Factors 1 or 2 Risk Factors 1 Troponin < Normal Limit 0 Total 3 Risk Factors: Risk Factors: DM, Current or recent (<one month) smoker, HTN, HLP, family history of CAD, obesity. Risk Scores: Score 0 - 3: 2.5% MACE over next 6 weeks - Discharge Home Score 4 - 6: 20.3% MACE over next 6 weeks - Admit for Clinical Observation Score 7 - 10: 72.7% MACE over next 6 weeks - Early Invasive Strategies Current Medications: Current Medications Aspirin (Aspirin Chewable) 324 mg 1X ONCE PO Last administered on 01/19/20at 10:17; Start 01/19/20 at 09:45; Stop 01/19/20 at 09:46; Status DC Active Scripts Active Augmentin 875-125 Tablet (Amoxicillin/Potassium Clav) 1 Each Tablet 1 Tab PO BID Levsin-Sl (Hyoscyamine Sulfate) 0.125 Mg Tab.subl 1-2 Tab SL PRN Q4HRS PRN Percocet 5-325 Mg Tablet (Oxycodone/Acetaminophen) 1 Each Tablet 1 Each PO PRN TID PRN pain Zofran (Ondansetron Hcl) 4 Mg Tablet 1 Tab PO PRN Q6-8HRS Reported Stool Softener (Docusate Sodium) 100 Mg Tablet 100 Mg PO DAILY Percocet 5-325 Mg Tablet (Oxycodone/Acetaminophen) 1 Each Tablet 1 Tab PO PRN Q4HRS PRN Vascepa (Icosapent Ethyl) 1 Gm Capsule 2 Cap PO BID Loratadine 10 Mg Tablet 10 Mg PO PRN DAILY PRN Pravastatin Sodium 20 Mg Tablet 1 Tab PO QHS Omeprazole 20 Mg Tablet.dr 1 Tab PO DAILY Amlodipine Besylate 5 Mg Tablet 5 Mg PO HS Metoprolol Succinate ( Xl ) (Metoprolol Succinate) 25 Mg Tab.er.24h 50 Mg PO DAILY Glimepiride 4 Mg Tablet 1 Tab PO BID Januvia (Sitagliptin Phosphate) 100 Mg Tablet 1 Tab PO DAILY Ibuprofen 800 Mg Tablet 800 Mg PO PRN Q8HRS PRN Fluticasone Propionate Nasal [place] (Fluticasone Propionate) 16 Gm [place].susp 2 [place] NS PRN DAILY PRN Cyclobenzaprine Hcl 10 Mg Tablet 1 Tab PO TID Vitamin D3 (Cholecalciferol (Vitamin D3)) 1,000 Unit Capsule 1,000 Unit PO DAILY Mag-Oxide (Magnesium Oxide) 400 Mg Tablet 400 Mg PO HS Aspir 81 (Aspirin) 81 Mg Tablet.dr 1 Tab PO DAILY Metformin Hcl 1,000 Mg Tablet 1 Tab PO BID Losartan-Hctz 100-25 Mg Tab (Losartan/Hydrochlorothiazide) 1 Each Tablet 1 Tab PO DAILY Allergies: Allergies: Allergies Coded Allergies Type Severity Reaction Last Updated Verified fentanyl Allergy Intermediate HEADACHE 08/12/18 Yes hydrocodone Adverse Reaction Intermediate headache 08/12/18 Yes morphine Adverse Reaction Intermediate headache 08/12/18 Yes propoxyphene Adverse Reaction Intermediate HEADACHE 08/12/18 Yes Physical Exam: PE: Constitutional: Well developed, well nourished, no acute distress, non-toxic appearance. [] HENT: Normocephalic, atraumatic, bilateral external ears normal, no trismus nose normal. [] Eyes: PERRLA, EOMI, conjunctiva normal, no discharge. [] Neck: Normal range of motion, no tenderness, supple, no stridor. [] Cardiovascular:Heart rate regular rhythm, peripheral pulses are intact, cap refill is less than 2 seconds Lungs & Thorax: Bilateral breath sounds clear, no respiratory distress Abdomen: Mild epigastric tenderness without guarding or rebound no masses, no pulsatile masses. [] Skin: Warm, dry, no erythema, no rash. [] Back: Tenderness to the left thoracic area., Pain with range of motion. Extremities: No tenderness, no cyanosis, no clubbing, ROM intact, no edema. [] Neurologic: Alert and oriented X 3, normal motor function, normal sensory function, no focal deficits noted. [] Psychologic: Affect normal, judgement normal, mood normal. [] Current Patient Data: Labs: Laboratory Tests Test 01/19/20 09:50 White Blood Count 9.6 x10^3/uL Red Blood Count 3.94 x10^6/uL Hemoglobin 12.6 g/dL Hematocrit 36.5 % Mean Corpuscular Volume 93 fL Mean Corpuscular Hemoglobin 32 pg Mean Corpuscular Hemoglobin Concent 35 g/dL Red Cell Distribution Width 14.2 % Platelet Count 369 x10^3/uL Neutrophils (%) (Auto) 61 % Lymphocytes (%) (Auto) 33 % Monocytes (%) (Auto) 5 % Eosinophils (%) (Auto) 1 % Basophils (%) (Auto) 1 % Neutrophils # (Auto) 5.8 x10^3/uL Lymphocytes # (Auto) 3.2 x10^3/uL Monocytes # (Auto) 0.4 x10^3/uL Eosinophils # (Auto) 0.1 x10^3/uL Basophils # (Auto) 0.0 x10^3/uL D-Dimer (Kalee) < 0.27 ug/mlFEU Sodium Level 138 mmol/L Potassium Level 3.9 mmol/L Chloride Level 101 mmol/L Carbon Dioxide Level 28 mmol/L Anion Gap 9 Blood Urea Nitrogen 8 mg/dL Creatinine 0.9 mg/dL Estimated GFR (Cockcroft-Gault) 77.8 BUN/Creatinine Ratio 9 Glucose Level 189 mg/dL Calcium Level 9.4 mg/dL Total Bilirubin 0.4 mg/dL Aspartate Amino Transf (AST/SGOT) 13 U/L Alanine Aminotransferase (ALT/SGPT) 21 U/L Alkaline Phosphatase 88 U/L Troponin I Quantitative < 0.017 ng/mL Total Protein 7.5 g/dL Albumin 3.7 g/dL Albumin/Globulin Ratio 1.0 Lipase 123 U/L Current Medications Medications (Trade) Dose Ordered Sig/Misty Route PRN Reason Start Time Stop Time Status Last Admin Dose Admin Aspirin (Aspirin Chewable) 324 mg 1X ONCE PO 01/19/20 09:45 01/19/20 09:46 DC 01/19/20 10:17 Vital Signs: Vital Signs Date Time Temp Pulse Resp B/P (MAP) Pulse Ox O2 Delivery O2 Flow Rate FiO2 01/19/20 09:28 97.3 71 16 132/88 (103) 98 Room Air 97.3 EKG: EKG: [] EKG interpreted by ky normal sinus rhythm with a rate of 68, left axis deviation, inverted T waves in V1 V2, normal QTC Radiology/Procedures: Radiology/Procedures: [][facility] [address] [place], [place] [id number] IMAGING REPORT Signed PATIENT: EFRAIN DEAN ACCOUNT: [id number] : 1960 LOCATION: ER AGE: 59 SEX: F EXAM STATUS: REG ER ORD. PHYSICIAN: BRIDGER VASQUEZ MD REASON: left scapular pain,pt states mid chest pain and some trouble breathing. PROCEDURE: PORTABLE CHEST 1V AP chest. HISTORY: Left scapular pain, mid chest pain, some trouble breathing AP view was taken of the chest. Lungs are clear. There is no pneumothorax or pleural effusion. Heart is normal in size. There is scarring in the right lung apex. There is been no change from a prior study. IMPRESSION: 1. No acute chest disease. Electronically signed by: Aj Monreal MD (01/19/2020 10:06 AM) [id number] DICTATED and SIGNED BY: AJ MONREAL MD DATE: 01/19/20 1006 Course & Med Decision Making: Course & Med Decision Making Pertinent Labs and Imaging studies reviewed. (See chart for details) [] 59-year-old female presents with left scapular pain, the pain is atraumatic. Patient is very atypical for acute coronary syndrome her EKG is unremarkable and her troponin is negative, doubt acute coronary syndrome. Patient has a negative D-dimer, doubt pulmonary realism. Symptoms not consistent with thoracic aortic dissection. Most likely the patient has a musculoskeletal strain. Patient stable for discharge and outpatient follow-up. Dragon Disclaimer: [employer] Disclaimer: This electronic medical record was generated, in whole or in part, using a voice recognition dictation system. Departure Departure Impression: Primary Impression: Thoracic back pain Disposition: 01 DC HOME SELF CARE/HOMELESS Condition: STABLE Referrals: NICO POWELL MD (PCP) 2-3 days Patient Instructions: Back Pain, Adult Additional Instructions: EMERGENCY DEPARTMENT GENERAL DISCHARGE INSTRUCTIONS THANK YOU for coming to [facility] Emergency Department (ED) today and trusting us with your care. We trust that you had a positive experience in our Emergency Department. If you wish to speak to the department Management you can contact the glazing department supervisor at . YOUR FOLLOW UP INSTRUCTIONS ARE FOLLOWS: Do you have a private doctor? If you do not have a private doctor, please ask for a resource list of physicians or clinics that may be able to assist you with follow up care. The Emergency Physician has interpreted your x-rays. The X-ray specialist will also review them. If there is a change in the findings you will be notified in 48 hours when at all possible. A lab test or lab culture may have been done, your results will be reviewed and you will be notified if you need a change in treatment. ADDITIONAL INSTRUCTIONS AND INFORMATION Your care today has been supervised by a physician who is specially trained in emergency care. Many problems require more than one evaluation for a complete diagnosis and treatment. We recommend that you schedule your follow up appointment as recommended to ensure complete treatment of your illness or injury. If you are unable to obtain follow up care and continue to have a problem, or if your condition worsens we recommend that you return to the ED. We are not able to safely determine your condition over the phone nor are we able to give sound medical advice over the phone. For these safety reasons, if you call for medical advice we will ask you to come to the ED for further evaluation If you have any questions regarding these discharge instructions please call the ED at . SAFETY INFORMATION In the interest of safety, wellness, and injury prevention; we encourage you to wear your seatbelt, if you smoke; quit smoking, and we encourage your family to use protective helmet for bicycling and other sporting events that present an increased risk for head injury. IF YOUR SYMPTOMS WORSEN OR NEW SYMPTOMS DEVELOP, OR YOU HAVE CONCERNS ABOUT YOUR CONDITION; OR IF YOUR CONDITION WORSENS WHILE YOU ARE WAITING FOR YOUR FOLLOW UP APPOINTMENT; EITHER CONTACT YOUR PRIMARY CARE DOCTOR, THE PHYSICIAN WHOSE NAME AND NUMBER YOU WERE GIVEN, OR RETURN TO THE ED IMMEDIATELY. Scripts Tramadol Hcl (ULTRAM) 50 Mg Tablet 1 TAB PO PRN Q6HRS PRN for pain MDD 4 Tablet(s) for 3 Days, #12 TAB 0 Refills Prov: BRIDGER VASQUEZ MD 01/19/20 BRIDGER VASQUEZ MD Jan 19, 2020 09:42
[2020-01-19] MEDS ORDERED: ASPIRIN CHEWABLE 81 MG TABLET. PO ONE (09:45)
[2020-01-19 10:06] LABS: BASO % 1 % (0-3); EOS # 0.1 x10^3/uL (0.0-0.7); EOS % 1 % (0-3); HEMATOCRIT 36.5 % (36.0-47.0); HEMOGLOBIN 12.6 g/dL (12.0-15.5); LYMPH # 3.2 x10^3/uL (1.0-4.8); LYMPH % 33 % (24-48); MEAN CORPUSCULAR HEMOGLOBIN 32 pg (25-35); MEAN CORPUSCULAR HGB CONC 35 g/dL (31-37); MEAN CORPUSCULAR VOLUME 93 fL (79-100); MONO # 0.4 x10^3/uL (0.0-1.1); MONO % 5 % (0-9); NEUT # 5.8 x10^3/uL (1.8-7.7); NEUT % 61 % (31-73); PLATELET COUNT 369 x10^3/uL (140-400); RED BLOOD COUNT 3.94 x10^6/uL (3.50-5.40); RED CELL DISTRIBUTION WIDTH 14.2 % (11.5-14.5); WHITE BLOOD COUNT 9.6 x10^3/uL (4.0-11.0)
--- NOTE | 2020-01-19 10:08 | RAD ---
AP chest. HISTORY: Left scapular pain, mid chest pain, some trouble breathing AP view was taken of the chest. Lungs are clear. There is no pneumothorax or pleural effusion. Heart is normal in size. There is scarring in the right lung apex. There is been no change from a prior study. IMPRESSION: 1. No acute chest disease. Electronically signed by: Aj Monreal MD (01/19/2020 10:06 AM) [id number]
[2020-01-19 10:13] LABS: CALCIUM 9.4 mg/dL (8.5-10.1); CREATININE 0.9 mg/dL (0.6-1.0); GFR 77.8; POTASSIUM 3.9 mmol/L (3.5-5.1)
[2020-01-19 10:18] LABS: ALBUMIN 3.7 g/dL (3.4-5.0); TOTAL BILIRUBIN 0.4 mg/dL (0.2-1.0); TOTAL PROTEIN 7.5 g/dL (6.4-8.2)
[2020-01-19 11:40] VITALS: BP 116/71
[2020-01-19] MEDS ORDERED: TRAM-48 PO (11:43)
--- NOTE | 2020-01-20 04:27 | EKG ---
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
== END 2020-01-19 12:20 | disposition home or self-care (01) ==
LOC: ER 09:27
DX: M54.6 Pain in thoracic spine (principal); M25.512 Pain in left shoulder; G89.29 Other chronic pain; R06.02 Shortness of breath; I10 Essential (primary) hypertension; Z88.4 Allergy status to anesthetic agent; Z88.5 Allergy status to narcotic agent; Z88.8 Allergy status to other drugs, medicaments and biological substances
CPT/HCPCS: 36415; 71045; 80053; 83690; 84484; 85025; 85379; 93005; 99285-25

== ENCOUNTER 2020-06-23 16:04 | Emergency (ER) | payer MEDICARE ==
[~2020-06-23] VITALS: Ht 165.1 cm; Wt 78.0 kg
[~2020-06-23 16:04] MED LIST changes: +TRAM-48 PO
[2020-06-23 16:49] LABS: BILIRUBIN,URINE NEGATIVE (NEG); CLARITY,URINE CLEAR; COLOR,URINE YELLOW; NITRITE,URINE NEGATIVE (NEG); PH,URINE 6.5 (<5.0-8.0); PROTEIN,URINE NEGATIVE (NEG-TRACE); UROBILINOGEN,URINE 0.2 mg/dL (0.2 mg/dL)
[2020-06-23 16:59] LABS: BACTERIA,URINE 0 /HPF (0-FEW); RBC,URINE OCC /HPF (0-2); WBC,URINE OCC /HPF (0-4)
[2020-06-23 17:08] LABS: BASO % 0 % (0-3); EOS # 0.2 x10^3/uL (0.0-0.7); EOS % 2 % (0-3); HEMATOCRIT 37.7 % (36.0-47.0); HEMOGLOBIN 12.8 g/dL (12.0-15.5); LYMPH # 3.2 x10^3/uL (1.0-4.8); LYMPH % 35 % (24-48); MEAN CORPUSCULAR HEMOGLOBIN 32 pg (25-35); MEAN CORPUSCULAR HGB CONC 34 g/dL (31-37); MEAN CORPUSCULAR VOLUME 93 fL (79-100); MONO # 0.5 x10^3/uL (0.0-1.1); MONO % 5 % (0-9); NEUT # 5.1 x10^3/uL (1.8-7.7); NEUT % 57 % (31-73); PLATELET COUNT 398 x10^3/uL (140-400); RED BLOOD COUNT 4.05 x10^6/uL (3.50-5.40); RED CELL DISTRIBUTION WIDTH 14.1 % (11.5-14.5)
[2020-06-23] MEDS ORDERED: IV NORMAL SALINE 1000ML BAG 1,000 ML IV ONE (17:15)
[2020-06-23 17:18] LABS: CALCIUM 9.6 mg/dL (8.5-10.1); CREATININE 0.9 mg/dL (0.6-1.0); GFR 77.8; POTASSIUM 3.6 mmol/L (3.5-5.1)
[2020-06-23 17:23] LABS: ALBUMIN 3.7 g/dL (3.4-5.0); ALBUMIN/GLOBULIN RATIO 0.9 (1.0-1.7); MAGNESIUM 1.8 mg/dL (1.8-2.4); TOTAL BILIRUBIN 0.3 mg/dL (0.2-1.0); TOTAL PROTEIN 7.7 g/dL (6.4-8.2)
[2020-06-23] MEDS ORDERED: IOHEXOL 300 MG/ML 100ML VIAL. IV ONE (17:30)
--- NOTE | 2020-06-23 18:24 | ED.ADGEN ---
Past Medical History Past Medical History: Diabetes-Type II, Gallstones, High Cholesterol, Hypertension Additional Past Medical Histor: chronic back pain, sarcoidosis, pilonidal cyst Past Surgical History: Cholecystectomy, Hysterectomy, Other Additional Past Surgical Histo: SPINAL CORD STIMULATOR 2002 Smoking Status: Never Smoker Alcohol Use: None Drug Use: None General Adult EDM: Chief Complaint: FLANK PAIN HPI: HPI: Patient is a 59 year old AA female who presents the emergency department today with complaints of right flank pain for the last 3 days. She denies any dysuria, hematuria, increased urinary frequency, or difficulty voiding. Patient denies any nausea, vomiting, diarrhea, fever, chest pain, cough, shortness of breath, wheezing, body aches, or fatigue. Patient reports that she does have a history of chronic back pain and has a spinal stimulator in her right lower back. Patient denies any change in her back pain, she denies any numbness, tingling, or weakness. She currently rates the pain in her right flank 8 out of 10 on the pain scale and reports that the pain increases with movement and activity. She states that the pain does seem to get better with rest. Review of Systems: Review of Systems: Complete ROS is negative unless otherwise noted in HPI. Current Medications: Current Medications Medications (Trade) Dose Ordered Sig/Misty Start Time Stop Time Status Last Admin Dose Admin Iohexol (Omnipaque 300 Mg/ml) 75 ml 1X ONCE 06/23/20 17:30 06/23/20 17:31 DC Sodium Chloride 1,000 ml @ 1,000 mls/hr 1X ONCE 06/23/20 17:15 06/23/20 18:14 DC 06/23/20 18:14 1,000 MLS/HR Allergies: Allergies: Allergies Coded Allergies Type Severity Reaction Last Updated Verified morphine Adverse Reaction Intermediate headache 08/12/18 Yes propoxyphene Adverse Reaction Intermediate HEADACHE 08/12/18 Yes Physical Exam: PE: See Above Constitutional: Well developed, well nourished, no acute distress, non-toxic appearance. [] HENT: Normocephalic, atraumatic, bilateral external ears normal, nose normal. [] Eyes: PERRLA, EOMI, conjunctiva normal, no discharge. [] Neck: Normal range of motion, no stridor. [] Cardiovascular:Heart rate regular rhythm Lungs & Thorax: Respirations even and unlabored, no retractions, no respiratory distress Abdomen: soft, right lower quadrant tenderness to palpation, no rebound tendern ess, no guarding, no palpable mass, no pulsatile mass, negative obturator sign, negative Rovsing sign, negative psoas signs, positive McBurney's point tenderness Skin: Warm, dry, no erythema, no rash. [] Extremities: No cyanosis, ROM intact, no edema. [] Neurologic: Alert and oriented X 3, no focal deficits noted. [] Psychologic: Affect normal, judgement normal, mood normal. [] Current Patient Data: Labs: Laboratory Tests Test 06/23/20 16:30 06/23/20 16:50 Urine Collection Type Unknown Urine Color Yellow Urine Clarity Clear Urine pH 6.5 (<5.0-8.0) Urine Specific [place] 1.025 (1.000-1.030) Urine Protein Negative mg/dL (NEG-TRACE) Urine Glucose (UA) >=1000 mg/dL (NEG) Urine Ketones (Stick) Negative mg/dL (NEG) Urine Blood Negative (NEG) Urine Nitrite Negative (NEG) Urine Bilirubin Negative (NEG) Urine Urobilinogen Dipstick 0.2 mg/dL (0.2 mg/dL) Urine Leukocyte Esterase Negative (NEG) Urine RBC Occ /HPF (0-2) Urine WBC Occ /HPF (0-4) Urine Squamous Epithelial Cells Occ /LPF Urine Bacteria 0 /HPF (0-FEW) White Blood Count 9.0 x10^3/uL (4.0-11.0) Red Blood Count 4.05 x10^6/uL (3.50-5.40) Hemoglobin 12.8 g/dL (12.0-15.5) Hematocrit 37.7 % (36.0-47.0) Mean Corpuscular Volume 93 fL (79-100) Mean Corpuscular Hemoglobin 32 pg (25-35) Mean Corpuscular Hemoglobin Concent 34 g/dL (31-37) Red Cell Distribution Width 14.1 % (11.5-14.5) Platelet Count 398 x10^3/uL (140-400) Neutrophils (%) (Auto) 57 % (31-73) Lymphocytes (%) (Auto) 35 % (24-48) Monocytes (%) (Auto) 5 % (0-9) Eosinophils (%) (Auto) 2 % (0-3) Basophils (%) (Auto) 0 % (0-3) Neutrophils # (Auto) 5.1 x10^3/uL (1.8-7.7) Lymphocytes # (Auto) 3.2 x10^3/uL (1.0-4.8) Monocytes # (Auto) 0.5 x10^3/uL (0.0-1.1) Eosinophils # (Auto) 0.2 x10^3/uL (0.0-0.7) Basophils # (Auto) 0.0 x10^3/uL (0.0-0.2) Sodium Level 139 mmol/L (136-145) Potassium Level 3.6 mmol/L (3.5-5.1) Chloride Level 104 mmol/L (98-107) Carbon Dioxide Level 27 mmol/L (21-32) Anion Gap 8 (6-14) Blood Urea Nitrogen 12 mg/dL (7-20) Creatinine 0.9 mg/dL (0.6-1.0) Estimated GFR (Cockcroft-Gault) 77.8 BUN/Creatinine Ratio 13 (6-20) Glucose Level 139 mg/dL (70-99) H Calcium Level 9.6 mg/dL (8.5-10.1) Magnesium Level 1.8 mg/dL (1.8-2.4) Total Bilirubin 0.3 mg/dL (0.2-1.0) Aspartate Amino Transferase (AST) 16 U/L (15-37) Alanine Aminotransferase (ALT) 22 U/L (14-59) Alkaline Phosphatase 80 U/L (46-116) Total Protein 7.7 g/dL (6.4-8.2) Albumin 3.7 g/dL (3.4-5.0) Albumin/Globulin Ratio 0.9 (1.0-1.7) L Lipase 130 U/L (73-393) Laboratory Tests 06/23/20 16:50 Laboratory Tests 06/23/20 16:50 Vital Signs: Vital Signs Date Time Temp Pulse Resp B/P (MAP) Pulse Ox O2 Delivery O2 Flow Rate FiO2 06/23/20 19:15 64 18 116/65 (82) 98 Room Air 06/23/20 16:10 97.1 97.1 EKG: EKG: [] Heart Score: C/O Chest Pain: No Risk Scores: Score 0 - 3: 2.5% MACE over next 6 weeks - Discharge Home Score 4 - 6: 20.3% MACE over next 6 weeks - Admit for Clinical Observation Score 7 - 10: 72.7% MACE over next 6 weeks - Early Invasive Strategies Radiology/Procedures: Radiology/Procedures: []PROCEDURE: CT ABD PELV W/ IV CONTRST ONLY CT abdomen pelvis with contrast dated 06/23/2020. Comparison made to 07/10/2018. Clinical data indication: Right-sided flank pain. TECHNIQUE: Contiguous axial imaging of the abdomen pelvis performed after the administration of 75 cc Omnipaque 300. One or more of the following individualized dose reduction techniques were utilized for this examination: 1. Automated exposure control 2. Adjustment of the mA and/or kV according to patient size 3. Use of iterative reconstruction technique. FINDINGS: Limited images of lung bases show mild to moderate emphysema. Heart size is within normal limits. No pleural or pericardial effusion. Liver is homogeneous. No apparent mass. Biliary tree normal in caliber. Gallbladder unremarkable. Spleen is normal in size. Pancreas, adrenal glands and kidneys are unremarkable. No hydronephrosis. Unopacified GI tract normal in caliber and contour. No focal bowel wall thickening. No inflammatory stranding in the mesentery. The appendix is normal in caliber. There are a few scattered diverticula throughout the colon. No pericolic inflammatory changes. No free fluid or lymphadenopathy. Images the pelvis show nondistended urinary bladder. Uterus is surgically absent. No free fluid or pelvic lymphadenopathy. Bone windows show no acute findings. Multilevel spondylosis with spinal stimulator lead in place. IMPRESSION: 1. No acute abnormality of abdomen or pelvis. Normal appendix. 2. Diverticulosis with no evidence of acute diverticulitis. 3. Small umbilical hernia containing only fat. 4. Status post cholecystectomy and hysterectomy. Electronically signed by: Darron Flynn MD (06/23/2020 6:26 PM) [facility] Course & Med Decision Making: Course & Med Decision Making Pertinent Labs and Imaging studies reviewed. (See chart for details) 59-year-old female presents emergency department with complaints of right flank CT the patient's abdomen pelvis was negative for any acute findings or kidney stone. CBC is unremarkable, CMP reveals elevated blood glucose of 139 otherwise unremarkable; UA reveals greater than 1000 glucose but is otherwise unremarkable. Advised patient of the normal findings. I recommended that she go home and rest may take Tylenol or ibuprofen as needed for pain recommend that she follows up with her primary care doctor or her neurosurgeon next week for further ev aluation return to the ER if symptoms worsen or fever develops. Patient verbalized an understanding of home care, medications, follow-up, and return to ED instructions and was in agreement with the plan of care. [] Dragon Disclaimer: Dragon Disclaimer: This electronic medical record was generated, in whole or in part, using a voice recognition dictation system. Departure Departure Impression: Primary Impression: Acute flank pain Disposition: 01 DC HOME SELF CARE/HOMELESS Condition: STABLE Referrals: NICO POWELL MD (PCP) Patient Instructions: Flank Pain, [id number] Additional Instructions: Take Tylenol or ibuprofen as needed for pain. You may also apply application of heat or ice as needed for comfort. Activity as tolerated. Follow-up with your primary care doctor or your neurosurgeon next week for further evaluation and treatment. Return to the ER if symptoms worsen or fever develops. CHARANJIT WONG [employer] INFORMAT[employer] ADVISOR Jun 23, 2020 18:24
--- NOTE | 2020-06-23 18:28 | RAD ---
CT abdomen pelvis with contrast dated 06/23/2020. Comparison made to 07/10/2018. Clinical data indication: Right-sided flank pain. TECHNIQUE: Contiguous axial imaging of the abdomen pelvis performed after the administration of 75 cc Omnipaque 300. One or more of the following individualized dose reduction techniques were utilized for this examinat ion: 1. Automated exposure control 2. Adjustment of the mA and/or kV according to patient size 3. Use of iterative reconstruction technique. FINDINGS: Limited images of lung bases show mild to moderate emphysema. Heart size is within normal limits. No pleural or pericardial effusion. Liver is homogeneous. No apparent mass. Biliary tree normal in caliber. Gallbladder unremarkable. Spleen is normal in size. Pancreas, adrenal glands and kidneys are unremarkable. No hydronephrosis. Unopacified GI tract normal in caliber and contour. No focal bowel wall thickening. No inflammatory s tranding in the mesentery. The appendix is normal in caliber. There are a few scattered diverticula t hroughout the colon. No pericolic inflammatory changes. No free fluid or lymphadenopathy. Images the pelvis show nondistended urinary bladder. Uterus is surgically absent. No free fluid or pe lvic lymphadenopathy. Bone windows show no acute findings. Multilevel spondylosis with spinal stimulator lead in place. IMPRESSION: 1. No acute abnormality of abdomen or pelvis. Normal appendix. 2. Diverticulosis with no evidence of acute diverticulitis. 3. Small umbilical hernia containing only fat. 4. Status post cholecystectomy and hysterectomy. Electronically signed by: Darron Flynn MD (06/23/2020 6:26 PM) [facility]
[2020-06-23 19:15] VITALS: BP 116/65
== END 2020-06-23 19:15 | disposition home or self-care (01) ==
LOC: ER 16:04
DX: R10.31 Right lower quadrant pain (principal); E11.9 Type 2 diabetes mellitus without complications; E78.00 Pure hypercholesterolemia, unspecified; I10 Essential (primary) hypertension; G89.29 Other chronic pain; Z90.49 Acquired absence of other specified parts of digestive tract; Z90.710 Acquired absence of both cervix and uterus; Z88.5 Allergy status to narcotic agent; Z88.8 Allergy status to other drugs, medicaments and biological substances
CPT/HCPCS: 36415; 74177; 80053; 81001; 83690; 83735; 85025; 96360; 99285; J7030

== ENCOUNTER → 2020-07-25 | Outpatient (CLI) | payer MEDICARE ==
--- NOTE | 2020-07-25 16:13 | KCIC ---
Bilateral digital screening mammograms with 3-D tomosynthesis: Reason for examination: Routine screening. Comparison is made to previous studies dated back to 05/01/2015. Bilateral mammograms in CC and oblique projections were obtained with 2-D imaging and 3-D tomosynthes is imaging on a Siemens Inspiration unit and reviewed on the workstation. Interpretation was made wit h the benefit of CAD. The skin and nipples show no abnormalities. No abnormal axillary lymph nodes are seen. The breast par enchyma is extremely dense. (Breast density: Category D.) There is a focus of nodular architectural d istortion which appears to be located within the 3:00 B position of the right breast. There is also s ome nodular architectural distortion suggested laterally in the right breast on cc view at approximat paige the 10:00 B position. Recommend further evaluation with right breast ultrasound. There are no oth er new dominant masses, suspicious calcifications or architectural distortion. Impression: Nodular architectural distortion suggested at the 3:00 B position of the right breast approximately 7 .5 cm from the nipple. There is also some nodular architectural distortion suggested laterally on the right cc view at approximately the 10:00 B position 6.5 cm from the nipple. Further evaluation with right breast ultrasound is recommended. Your patient's mammogram demonstrates that she has dense breast tissue (breast density category C or D), which could hide abnormalities, and if she has other risk factors for breast cancer that have bee n identified, she might benefit from supplemental screening tests that may be suggested by you as her ordering physician. Dense breast tissue, in and of itself, is a relatively common condition. Therefo re, this information is not provided to cause undue concern, but rather to raise your awareness and t o promote discussion with your patient regarding the presence of other risk factors, in addition to d ense breast tissue. Your patient's mammography results will be sent to her. BI-RAD Category 0: Incomplete. Needs additional imaging evaluation. "Our facility is accredited by the [employer] Mammography [employer]." This patient's information has been entered into a reminder system for the patient to be notified wit h the results of her examination and a target date for the next mammogram. Electronically signed by: Laura Murray MD (07/25/2020 4:10 PM) [id number]
== END ==
LOC: KCIC MAMMO 09:37
PROVIDERS: ATTEND Family Medicine
DX: Z12.31 Encounter for screening mammogram for malignant neoplasm of breast (principal); N64.89 Other specified disorders of breast
CPT/HCPCS: 77063; 77067

== ENCOUNTER → 2020-08-03 | Outpatient (CLI) | payer MEDICARE ==
--- NOTE | 2020-08-03 13:51 | KCIC ---
Right breast ultrasound: Reason for examination: Dense breast parenchymal with a density on screening mammogram. Comparison is made to mammographic exam dated 07/25/2020. Ultrasound examination of the right breast and axilla was performed. There is some ductal ectasia. There is dense fibroglandular tissue but no suspicious-appearing nodule s are seen. No abnormal appearing lymph nodes are seen in the axilla. IMPRESSION: Dense fibroglandular tissue but no suspicious nodules seen. Recommend 6 month follow-up with right br east mammograms and ultrasound. BI-RADS Category 3: Probably Benign. "Our facility is accredited by the [employer] Mammography [employer]." This patient's information has been entered into a reminder system for the patient to be notified wit h the results of her examination and a target date for the next mammogram. Electronically signed by: Laura Murray MD (08/03/2020 1:49 PM) [email or web address]
== END ==
LOC: KCIC US 12:51
PROVIDERS: ATTEND Family Medicine
DX: R92.8 Other abnormal and inconclusive findings on diagnostic imaging of breast (principal)
CPT/HCPCS: 76641